=== PATIENT | male | born 1960 | race Two or more races ===

== ENCOUNTER 2022-05-28 18:21 | Inpatient (IN) ==
--- NOTE | 2022-05-28 18:28 | ED Triage Note ---
Date of Service May 28, 2022 History of Present Illness This patient was briefly evaluated while in triage. An abbreviated physical exam was performed. This patient is a 61-year-old Male who presents to the ED for evaluation of chest pain. 2/10 now. When moving the pain goes to across chest and to left side of chest and is 6/10. Last night chest pain and back pain. While walking home from PT the chest pain occurred. He also has a back issue and has been seeing PT. No personal heart history. Physical Exam GENERAL: 61 year old male. In no acute distress. SKIN: No lesions or rashes. HEART: Regular rate and rhythm. LUNGS: Clear to auscultation. NEURO: Alert and oriented. No deficits. MUSCULOSKELETAL: No deformities to inspection of the extremities. PSYCH: Patient is pleasant and answers all questions appropriately. Initial orders for labs and / or imaging were placed and patient was placed in the waiting area until a bed is available. Please see further documentation for the full ED course.
[2022-05-28 19:07] LABS: Basophils # (auto) 0.02 K/uL (0-0.2); Basophils % (auto) 0.2 %; Eosinophils # (auto) 0.02 K/uL (0-0.50); Eosinophils % (auto) 0.2 %; Hematocrit (blood only) 44.1 % (42.0-52.0); Hemoglobin 14.7 g/dl (14.0-18.0); Immature Granulocytes # (auto) 0.02 K/uL (0.01-0.20); Immature Granulocytes % (auto) 0.2 %; Lymphocytes # (auto) 1.37 K/uL (1.2-3.4); Mean Corpuscular Hemoglobin 30.4 pg (25.0-34.0); Mean Corpuscular Hgb Conc 33.3 g/dL (32.0-36.0); Mean Corpuscular Volume 91.1 fL (80.0-100.0); Mean Platelet Volume 9.6 fL (9.4-12.4); Monocytes # (auto) 0.76 K/uL (0.11-0.59); Monocytes % (auto) 7.7 %; Neutrophils # (auto) 7.62 K/uL (1.40-6.50); Neutrophils % (auto) 77.7 %; Platelet Count 189 K/uL (130-400); RDW Coefficient of Variation 12.5 % (11.5-14.5); Red Blood Count 4.84 M/uL (4.70-6.10); White Blood Count 9.81 K/ul (4.8-10.8)
[2022-05-28 19:25] LABS: Albumin Globulin Ratio 1.5 (0.9-2); Albumin Level 4.5 gm/dl (3.4-5.0); BUN Creatinine Ratio 13.7 (10-20); Bilirubin,Total 0.5 mg/dl (0.2-1.0); Calcium 9.6 mg/dl (8.5-10.1); Creatinine Clr Calc Pharmacy 55.4 ml/min; Est GFR (Non-African American) 66.4 ml/min; Potassium 4.1 mmol/L (3.5-5.1); Total Protein 7.5 gm/dl (6.0-8.3)
[2022-05-28 19:34] LABS: Troponin I High Sensitivity 6848.3 pg/ml (0-20)
[2022-05-28 19:35] LABS: Partial Thromboplastin Time 27.9 Seconds (21.0-31.0); Prothrombin Time 10.8 Seconds (9.0-12.0)
[2022-05-28] MEDS ORDERED: ASPIRIN 81 MG CHEW PO STA (19:36)
[2022-05-28] MEDS ORDERED: NITROGLYCERIN SL 0.4 MG/TAB TAB SL STA (19:36)
[2022-05-28] MEDS ORDERED: SODIUM CHLORIDE 0.9% 1000ML 1,000 ML IV ONE (19:42)
[2022-05-28] MEDS ORDERED: OPTIRAY 320 500ml IV ONE (19:48)
[2022-05-28 19:50] LABS: Lyme Ab IgG w/WB Rflx Negative (Negative); Lyme Ab IgM w/WB Rflx Negative (Negative)
--- NOTE | 2022-05-28 20:09 | CT Scan Report ---
CHEST CTA for PULMONARY ARTERIES CT DOSE: 302.70 mGy.cm HISTORY: Atypical chest pain. Shortness of breath. TECHNIQUE: Multiaxial CT images of the chest were performed following the intravenous administration of contrast to evaluate the pulmonary arteries. Maximal intensity projection images were also obtaine d. A dose lowering technique was utilized adhering to the principles of ALARA. COMPARISON STUDY: None. FINDINGS: Normal caliber thoracic aorta with no evidence for a dissection. Mild coronary artery calci fications are noted. The heart is normal in size. No pleural or pericardial effusions. Nondiagnostic evaluation of the left lower lobe subsegmental pulmonary arteries due to the respiratory motion artif act. Otherwise, no filling defects within the remaining pulmonary arteries to suggest a pulmonary emb olus. Normal thyroid gland. Normal caliber esophagus. Limited views of the upper abdomen demonstrate a normal liver and spleen. No mediastinal or hilar lymphadenopathy. No acute fractures identified. No pneumothorax. The central airways are patent. No focal lung consolidations to suggest a pneumonia. N o evidence for pulmonary edema. IMPRESSION: No evidence for a pulmonary embolus. ACT 112: Negative or not required by law. Electronically signed by: Bradford Silva M.D. 05/28/2022 8:07 PM
[2022-05-28] MEDS ORDERED: Heparin IV Adult Wt-Based Standard WITH Bolus Protocol IV STA (20:11)
[2022-05-28] MEDS ORDERED: STAT IV Infusion **Titration per Protocol STA (20:11)
[2022-05-28] MEDS ORDERED: NITROGLYCERIN/D5W 100MCG/ML 250 ML IV SCH (20:15)
[2022-05-28] MEDS ORDERED: METOPROLOL TARTRATE 25 MG TAB PO STA (20:25)
[2022-05-28] MEDS ORDERED: HEPARIN SOD (PORCINE) 1000 UNIT/ML IV ONE ×2 (20:26→21:00)
[2022-05-28] MEDS ORDERED: Heparin IV Adult Wt-Based Standard WITH Bolus Protocol IV SCH (20:30)
[2022-05-28] MEDS ORDERED: HEPARIN SODIUM/DEXTROSE 25,000 UNITS/500 ML BAG IV SCH ×2 (20:30→23:00)
--- NOTE | 2022-05-28 20:31 | XRay Report ---
XR chest 1V portable HISTORY: Atypical Chest pain COMPARISON: Chest CTA 05/28/2022. FINDINGS: The lungs are clear. Cardiac silhouette is normal in size. No pleural effusions. No pneumot horax. IMPRESSION: No acute process. ACT 112: Negative or not required by law. Electronically signed by: Bradford Silva M.D. 05/28/2022 8:29 PM
[2022-05-28 20:50] LABS: Magnesium 2.1 mg/dl (1.7-2.4)
[2022-05-28 21:09] LABS: Estimated Average Glucose 117 mg/dl; Hemoglobin A1C 5.7 % (4.5-5.6)
[2022-05-28] MEDS ORDERED: LABETALOL HCL IV 5 MG/ML 20ML IV STA (21:25)
--- NOTE | 2022-05-28 21:27 | History & Physical Report ---
Date of Service May 28, 2022 Assessment & Plan (1) Non-ST elevation AR (NSTEMI): Plan: Hypertensive emergency secondary to above prostatic adenoma as per records, history chronic prostatitis as per records, elevated outpatient PSA, outpatient urology referral contemplated by PCP Hyperglycemia rule out DM ICU monitoring given nitro drip IV labetalol 1 dose now Titrate nitro drip for comfort Aspirin, maintainence Lopressor, IV heparin TTE, Cardiology consult Re: NSTEMI (ED provider already in touch with critical care nurse specialist, Dr. Garduno who recommends diagnostic cardiac catheterization in a.m. Urgent procedure recommended if patient with uncontrolled pain as per public housing interviewer's conversation with ED provider.) Check hemoglobin A1c DVT prophylaxis. IV heparin Full code Patient requests for to be updated of progress. Miss Yaneth Vo, contact #[phone]. Secondary contact would be Mr. Cristi Estevez (work colleague/friend), contact #[phone]. Total critical care time was 50 minutes. Text document was generated using [email or web address] voice recognition software. It may contain grammatical or spelling errors. Kindly contact undersigned for clarification of any documentation item in question. History of Present Illness Chief Complaint: Back pain going to the chest Primary Care Provider: SYDNEE Castellanos History obtained from patient, family, and records. History obtained with the help of language line translation service. Medical history significant for chronic back pain, prostatic adenoma as per records. 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 For the last 4 days, patient noted achy radiating to the chest back pain associated with some shortness of breath. Symptoms somewhat different from chronic back pain attributed to old volleyball sports injury. No cough symptoms. Achy neck pain with transient headache symptoms. Some stress with some war related deaths in the family back home in [facility]. Patient brought to ER by work colleague for evaluation. SBP 190s at the ER. Aspirin, Nitropaste, IV heparin initiated at the ER for ACS. 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 [facility] Allergies Allergy/AdvReac Type Severity Reaction Status Date / Time No Known Allergies Allergy Verified 05/28/22 20:26 Home Medications Medication Instructions Recorded Confirmed Type No Known Home Medications 05/28/22 05/28/22 History Past Med/Surg History Medical History (Updated 05/29/22 @ 03:04 by SYDNEE Sandoval) Hepatitis A No pertinent family history Surgical History (Updated 05/29/22 @ 02:38 by Hiren Alexander) No pertinent past surgical history Social History Smoking Status: Never smoker Hx Alcohol Use: Yes Alcohol type: wine Hx Substance Use: No Preferred Language: Mauritanian 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 Ability: Impaired 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 Tools: IPad, Letter Board and Physical Gestures Breeding Technician Required: Yes Beliefs That Will Affect Care: None Current Living Situation: Spouse and Family Current Living Situation Comment: Patient lives at home with and daughter Other Information That Helps Us Care for You: No Feels Safe at Home: Yes Safety Concerns: Feels Safe At This Time Assistive Devices: Glasses Review of Systems Review of Systems: As per HPI, all other systems reviewed and negative Physical Exam Physical Exam: GENERAL: Comfortable, pleasant, slightly anxious, no respiratory distress SKIN: Normal color, warm HEENT: Partial alopecia, [place] palpebral conjunctivae, no ptosis, dry buccal mucosa NECK : Supple, no tenderness CHEST : CTA, no tenderness HEART : RRR, no obvious murmurs ABDOMEN: no distention, nontender EXTREMITIES : No LE swelling/tenderness, no other conspicuous deformities noted NEUROLOGIC : Coherent, no facial asymmetry, no other gross focality Results & Data Results & Data ([facility]) Vital Signs (Past 12 Hours) Vital Signs Temp Pulse Resp BP Pulse Ox O2 Del Method 05/28/22 21:00 72 14 185/136 H 96 05/28/22 20:45 65 24 96 05/28/22 20:30 57 L 17 181/96 H 97 05/28/22 20:15 67 14 94 05/28/22 20:09 162/95 H 05/28/22 20:09 70 23 95 05/28/22 20:05 61 22 97 05/28/22 18:26 37.3 C 70 20 198/92 H 97 Room Air Laboratory Results Laboratory Results WBC 9.81 K/ul (4.8-10.8) 05/28/22 18:51 RBC 4.84 M/uL (4.70-6.10) 05/28/22 18:51 Hgb 14.7 g/dl (14.0-18.0) 05/28/22 18:51 Hct 44.1 % (42.0-52.0) 05/28/22 18:51 MCV 91.1 fL (80.0-100.0) 05/28/22 18:51 MCH 30.4 pg (25.0-34.0) 05/28/22 18:51 MCHC 33.3 g/dL (32.0-36.0) 05/28/22 18:51 RDW Std Deviation 41.0 fL (36.4-46.3) 05/28/22 18:51 RDW Coeff of Antonio 12.5 % (11.5-14.5) 05/28/22 18:51 Plt Count 189 K/uL (130-400) 05/28/22 18:51 MPV 9.6 fL (9.4-12.4) 05/28/22 18:51 Immature Gran % (Auto) 0.2 % 05/28/22 18:51 Neut % (Auto) 77.7 % 05/28/22 18:51 Lymph % (Auto) 14.0 % 05/28/22 18:51 [place] % (Auto) 7.7 % 05/28/22 18:51 Eos % (Auto) 0.2 % 05/28/22 18:51 Baso % (Auto) 0.2 % 05/28/22 18:51 Neut # (Auto) 7.62 K/uL (1.40-6.50) H 05/28/22 18:51 Lymph # (Auto) 1.37 K/uL (1.2-3.4) 05/28/22 18:51 [place] # (Auto) 0.76 K/uL (0.11-0.59) H 05/28/22 18:51 Eos # (Auto) 0.02 K/uL (0-0.50) 05/28/22 18:51 Baso # (Auto) 0.02 K/uL (0-0.2) 05/28/22 18:51 Immature Gran # (Auto) 0.02 K/uL (0.01-0.20) 05/28/22 18:51 PT 10.8 Seconds (9.0-12.0) 05/28/22 18:51 INR 1.0 (0.9-1.1) 05/28/22 18:51 APTT 27.9 Seconds (21.0-31.0) 05/28/22 18:51 PTT Ratio 1.0 05/28/22 18:51 Sodium 140 mmol/L (136-145) 05/28/22 18:51 Potassium 4.1 mmol/L (3.5-5.1) 05/28/22 18:51 Chloride 104 mmol/L (98-107) 05/28/22 18:51 Carbon Dioxide 33 mmol/L (21-32) H 05/28/22 18:51 Anion Gap 3 (3-11) 05/28/22 18:51 BUN 16 mg/dl (6-23) 05/28/22 18:51 Creatinine 1.17 mg/dl (0.6-1.4) 05/28/22 18:51 Est Cr Clr Drug Dosing 55.4 ml/min 05/28/22 18:51 Est GFR ( Amer) 77.0 ml/min 05/28/22 18:51 Est GFR (Non-Af Amer) 66.4 ml/min 05/28/22 18:51 BUN/Creatinine Ratio 13.7 (10-20) 05/28/22 18:51 Glucose 136 mg/dl (70-99(Fasting)) H 05/28/22 18:51 Estimat Average Glucose 117 mg/dl 05/28/22 18:51 Hemoglobin A1c 5.7 % (4.5-5.6) H 05/28/22 18:51 Calcium 9.6 mg/dl (8.5-10.1) 05/28/22 18:51 Magnesium 2.1 mg/dl (1.7-2.4) 05/28/22 18:51 Total Bilirubin 0.5 mg/dl (0.2-1.0) 05/28/22 18:51 AST 83 U/L (13-39) H 05/28/22 18:51 ALT 33 U/L (7-52) 05/28/22 18:51 Alkaline Phosphatase 44 U/L (34-104) 05/28/22 18:51 Troponin I High Sens 6848.3 pg/ml (0-20) H* 05/28/22 18:51 Total Protein 7.5 gm/dl (6.0-8.3) 05/28/22 18:51 Albumin 4.5 gm/dl (3.4-5.0) 05/28/22 18:51 Globulin 3.0 gm/dl (2.5-4.0) 05/28/22 18:51 Albumin/Globulin Ratio 1.5 (0.9-2) 05/28/22 18:51 Lipase 16 U/L (11-82) 05/28/22 18:51 TSH 1.243 uIu/ml (0.300-4.500) 05/28/22 18:51 Lyme Disease IgG Ab Negative (Negative) 05/28/22 18:51 Lyme Disease IgM Ab Negative (Negative) 05/28/22 18:51 Impressions Chest X-Ray 05/28/22 18:34 XR chest 1V portable HISTORY: Atypical Chest pain COMPARISON: Chest CTA 05/28/2022. FINDINGS: The lungs are clear. Cardiac silhouette is normal in size. No pleural effusions. No pneumothorax. IMPRESSION: No acute process. ACT 112: Negative or not required by law. Electronically signed by: Bradford Silva M.D. 05/28/2022 8:29 PM Chest CTA 05/28/22 19:34 CHEST CTA for PULMONARY ARTERIES CT DOSE: 302.70 mGy.cm HISTORY: Atypical chest pain. Shortness of breath. TECHNIQUE: Multiaxial CT images of the chest were performed following the in travenous administration of contrast to evaluate the pulmonary arteries. Maximal intensity projection images were also obtained. A dose lowering technique was utilized adhering to the principles of ALARA. COMPARISON STUDY: None. FINDINGS: Normal caliber thoracic aorta with no evidence for a dissection. Mild coronary artery calcifications are noted. The heart is normal in size. No pleural or pericardial effusions. Nondiagnostic evaluation of the left lower lobe subsegmental pulmonary arteries due to the respiratory motion artifact. Otherwise, no filling defects within the remaining pulmonary arteries to suggest a pulmonary embolus. Normal thyroid gland. Normal caliber esophagus. Limited views of the upper abdomen demonstrate a normal liver and spleen. No mediastinal or hilar lymphadenopathy. No acute fractures identified. No pneumothorax. The central airways are patent. No focal lung consolidations to suggest a pneumonia. No evidence for pulmonary edema. IMPRESSION: No evidence for a pulmonary embolus. ACT 112: Negative or not required by law. Electronically signed by: Bradford Silva M.D. 05/28/2022 8:[address] head: No acute intracranial hemorrhage, midline shift, or mass effect. Diagnostic Findings EKG as per my interpretation : Rate 55, sinus bradycardia, normal axis, T wave inversions inferior leads
[2022-05-28] MEDS ORDERED: LACTATED RINGER'S 1,000 ML IV ONE (21:47)
--- NOTE | 2022-05-28 22:29 | CT Scan Report ---
Exam(s): CT HEAD Without Contrast EXAM: CT Head Without Intravenous Contrast CLINICAL HISTORY: Reason for exam: sanchez, htn. TECHNIQUE: Axial computed tomography images of the head/brain without intravenous contrast. Automated exposure control was utilized for the study. A dose lowering technique was utilized adhering to the principles of ALARA. COMPARISON: No relevant prior studies available. FINDINGS: No acute intracranial hemorrhage. No midline shift or mass effect. The territorial zendejas-white matter differentiation is maintained throughout. The ventricles and sulci are commensurate with age. The visualized orbits appear grossly unremarkable. The calvarium is intact. The visualized paranasal sinuses and mastoid air cells are grossly clear. IMPRESSION: No acute intracranial hemorrhage, midline shift, or mass effect. Electronically signed by: Thaddeus Argueta MD 05/28/22 22:28 PM
[2022-05-28] MEDS ORDERED: Heparin IV Adult Wt-Based Standard *NO* Bolus Protocol IV SCH (22:38)
[2022-05-28] MEDS ORDERED: PROMETHAZINE HCL 6.25 MG in SODIUM CHLORIDE 0.9% 50 ML IV PRN (23:20)
[2022-05-28] MEDS ORDERED: MoRPHine SULFATE 2 MG/ML CARP IV PRN (23:20)
[2022-05-28] MEDS ORDERED: traMADol HCL 50 MG TABLET PO PRN (23:20)
--- NOTE | 2022-05-29 02:35 | Emergency Department Note ---
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 History of Present Illness Provider Complaint: chest pain Onset (ago): day(s) 1 Duration: improved Onset: during exertion Pain Location: substernal and left chest Pain Radiation: none Severity: moderate Maximum Pain Intensity: 6 Current Pain Intensity: 2 Quality: + aching and + dull Relieved By: + rest Exacerbated By: + exertion Context: no recent illness, no recent surgery, no recent immobilization, no recent travel, no trauma/injury, no new medications or no history of DVT/PE Associated symptoms: + dyspnea; no palpitations, no fever or no cough Treatments prior to arrival: none Home Medications Medication Instructions Recorded Confirmed Type No Known Home Medications 05/28/22 05/28/22 History Allergies Allergy/AdvReac Type Severity Reaction Status Date / Time No Known Allergies Allergy Verified 05/28/22 20:26 Past Med/Surg History Medical History (Updated 05/29/22 @ 02:45 by Hiren Alexander) Hepatitis A No pertinent family history Surgical History (Updated 05/29/22 @ 02:38 by Hiren Alexander) No pertinent past surgical history Social History Smoking Status: Never smoker Hx Alcohol Use: Yes Alcohol type: wine Hx Substance Use: No Preferred Language: Bhutanese 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 Ability: 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 Beliefs That Will Affect Care: None Current Living Situation: Spouse and Family Current Living Situation Comment: Patient lives at home with and daughter Other Information That Helps Us Care for You: No Feels Safe at Home: Yes Safety Concerns: Feels Safe At This Time Assistive Devices: Glasses Physical Exam Vital Signs Vital Signs - 24 hr 05/28/22 18:26 05/28/22 20:05 05/28/22 20:09 Temperature 37.3 C Temperature Source Temporal Artery Scan Pulse Rate 70 61 70 Pulse Rate from SpO2 Sensor 62 65 Pulse Rhythm Regular Respiratory Rate 20 22 23 Respiratory Effort / Characteristics Non-Labored Spontaneous Respiratory Depth Normal Blood Pressure 198/92 H Blood Pressure Mean 127 Pulse Oximetry 97 97 95 Oxygen Delivery Method Room Air Sepsis Recent Fever Within 48 Hours No Sepsis New/Unexplained Change in Mental Status No Sepsis Action Taken by Nursing No Action Required 05/28/22 20:09 05/28/22 20:15 05/28/22 20:30 Temperature Temperature Source Pulse Rate 67 57 L Pulse Rate from SpO2 Sensor 65 57 L Pulse Rhythm Respiratory Rate 14 17 Respiratory Effort / Characteristics Respiratory Depth Blood Pressure 162/95 H 181/96 H Blood Pressure Mean 117 124 Pulse Oximetry 94 97 Oxygen Delivery Method Sepsis Recent Fever Within 48 Hours Sepsis New/Unexplained Change in Mental Status Sepsis Action Taken by Nursing 05/28/22 20:45 05/28/22 21:00 05/28/22 21:15 Temperature Temperature Source Pulse Rate 65 72 60 Pulse Rate from SpO2 Sensor 63 72 61 Pulse Rhythm Respiratory Rate 24 14 25 H Respiratory Effort / Characteristics Respiratory Depth Blood Pressure 185/136 H 176/108 H Blood Pressure Mean 152 130 Pulse Oximetry 96 96 97 Oxygen Delivery Method Sepsis Recent Fever Within 48 Hours Sepsis New/Unexplained Change in Mental Status Sepsis Action Taken by Nursing 05/28/22 21:25 05/28/22 21:30 05/28/22 21:31 Temperature Temperature Source Pulse Rate 65 76 Pulse Rate from SpO2 Sensor 65 Pulse Rhythm Respiratory Rate 22 18 Respiratory Effort / Characteristics Respiratory Depth Blood Pressure 156/80 H 192/108 H Blood Pressure Mean 105 136 Pulse Oximetry 99 Oxygen Delivery Method Sepsis Recent Fever Within 48 Hours Sepsis New/Unexplained Change in Mental Status Sepsis Action Taken by Nursing 05/28/22 21:31 05/28/22 21:35 05/28/22 21:35 Temperature Temperature Source Pulse Rate 84 62 Pulse Rate from SpO2 Sensor 63 Pulse Rhythm Respiratory Rate 20 15 Respiratory Effort / Characteristics Respiratory Depth Blood Pressure 151/94 H Blood Pressure Mean 113 Pulse Oximetry 97 Oxygen Delivery Method Sepsis Recent Fever Within 48 Hours Sepsis New/Unexplained Change in Mental Status Sepsis Action Taken by Nursing 05/28/22 20:05 Temperature Temperature Source Pulse Rate 63 Pulse Rate from SpO2 Sensor Pulse Rhythm Respiratory Rate Respiratory Effort / Characteristics Respiratory Depth Blood Pressure Blood Pressure Mean Pulse Oximetry Oxygen Delivery Method Sepsis Recent Fever Within 48 Hours Sepsis New/Unexplained Change in Mental Status Sepsis Action Taken by Nursing Physical Exam GENERAL: oriented to person, place, and time. appears well-developed and well- nourished. HENT: Exam performed. - Head: Normocephalic and atraumatic. EYES: Conjunctivae and EOM are normal. Right eye exhibits no discharge. Left eye exhibits no discharge. No scleral icterus. NECK: Normal range of motion. Neck supple. No JVD present. CV: Normal rate, regular rhythm, normal heart sounds and intact distal pulses. There is no peripheral edema. Palpable radial pulses bue. PULM/CHEST: Effort normal and breath sounds normal. No respiratory distress. No stridor. no wheezes. no rales. ABD: The abdomen is soft. There is no tenderness. NEURO: Motor and sensation grossly intact. SKIN: Skin is warm and dry. He is not diaphoretic. PSYCH: normal mood and affect. Behavior is normal. Judgment and thought content normal. Course Course 1921: The patient was evaluated in room C12. A complete history and physical exam was performed Cardiac monitoring: An order was placed for continuous cardiac monitoring. The monitor shows a rate of 60 with sinus rhythm interpreted by me Patient was seen during a time of extreme volume and extreme acuity in the emergency department. Nursing triage protocols were initiated and labs were drawn by protocol in the triage area. 1939: Vital signs stable. EKG to show some biphasic T waves in the inferior leads as well as some mild ST depression in leads V2 and V3. Troponin is elevated at 6848. Patient currently reporting his chest pain is 2 out of 10. Discussed the case with interventional cardiology on-call Dr. Garduno who reviewed the EKGs himself and states if the patient becomes increasingly symptomatic having chest pain to call out a heart alert otherwise at this time to start the patient on heparin for ACS and he will evaluate the patient in the morning for cardiac catheterization. 2028: Vital signs stable. Status post aspirin and sublingual nitroglycerin the patient states that his chest pain is barely there reporting extremely mild. He states is not causing him any distress and he reports that at a maximum of 1 out of 10 at this time. We will start the patient on heparin and nitro drip and pl [facility] will be notified. Administered Medications Nitroglycerin/Dextrose (Nitroglycerin/D5w 100 Mcg/Ml) 250 mls @ 12 mls/hr IV .[id number] [facility]; Protocol Stop: 06/27/22 20:14 Last Titration: 05/28/22 22:11 Dose: 20 mcg/min, 12 mls/hr Documented By: Titration: 05/28/22 21:25 Dose: 15 mcg/min, 9 mls/hr Documented By: Titration: 05/28/22 21:20 Dose: 10 mcg/min, 6 mls/hr Documented By: Admin: 05/28/22 20:57 Dose: 5 mcg/min, 3 mls/hr Documented By: SAM Co-signed By: GINNY Lactated Ringer's (Lr) 1,000 mls @ 50 mls/hr IV .Q20H ONE Stop: 05/29/22 17:46 Last Admin: 05/28/22 22:08 Dose: 50 mls/hr Documented By: SAM Heparin Sodium/Dextrose (Heparin Sodium/Dextrose) 25,000 units in 500 mls @ 22 mls/hr IV .[id number] [facility]; Protocol Stop: 06/27/22 22:59 Last Admin: 05/28/22 23:38 Dose: 1,100 units/hr, 22 mls/hr Documented By: EDWIN Co-signed By: ALANA Discontinued Medications Aspirin (Aspirin 81 Mg Chew) 324 mg PO NOW STA Stop: 05/28/22 19:37 Last Admin: 05/28/22 20:02 Dose: 324 mg Documented By: NATY Heparin Sodium (Porcine) (Heparin Sod (Porcine) 1000 Unit/Ml) 5,000 units IV NOW ONE Stop: 05/28/22 21:01 Last Admin: 05/28/22 21:02 Dose: Not Given Documented By: SAM Heparin Sodium/Dextrose (Heparin Iv Adult Wt-Based Standard With Bolus Protocol) 1 each IV NOW STA; Protocol Stop: 05/28/22 20:12 Last Admin: 05/28/22 21:01 Dose: 1 each Documented By: SAM Heparin Sodium/Dextrose (Heparin Iv Adult Wt-Based Standard *No* Bolus Protocol) 1 each IV Q15M [facility]; Protocol Stop: 05/29/22 02:00 Last Admin: 05/29/22 02:10 Dose: 1 each Documented By: EDWIN Sodium Chloride (Nss 1000ml) 1,000 mls @ 999 mls/hr IV .Q1H1M ONE Stop: 05/28/22 20:42 Last Infusion: 05/29/22 01:29 Dose: 0 mls/hr Documented By: Admin: 05/28/22 20:02 Dose: 999 mls/hr Documented By: NATY Heparin Sodium/Dextrose (Heparin Sodium/Dextrose) 25,000 units in 500 mls @ 22 mls/hr IV .[id number] [facility]; Protocol Stop: 06/27/22 20:29 Last Titration: 05/29/22 01:30 Dose: 0 units/hr, 0 mls/hr Documented By: EDWIN Co-signed By: ALANA Titration: 05/28/22 21:04 Dose: 0 units/hr, 0 mls/hr Documented By: SAM Co-signed By: GINNY Admin: 05/28/22 20:57 Dose: 1,100 units/hr, 22 mls/hr Documented By: SAM Co-signed By: GINNY Ioversol (Optiray 320 500ml) 107 ml IV ONCE ONE Stop: 05/28/22 19:49 Last Admin: 05/28/22 19:52 Dose: 107 ml Documented By: KAVYA Labetalol HCl (Labetalol Hcl Iv 5 Mg/Ml 20ml) 10 mg IV NOW STA Stop: 05/28/22 21:26 Last Admin: 05/28/22 21:57 Dose: 10 mg Documented By: SAM Co-signed By: CESARIO Metoprolol Tartrate (Metoprolol Tartrate 25 Mg Tab) 25 mg PO NOW STA Stop: 05/28/22 20:26 Last Admin: 05/28/22 22:09 Dose: Not Given Documented By: SAM Nitroglycerin (Nitroglycerin Sl 0.4 Mg/Tab Tab) 0.4 mg SL NOW STA Stop: 05/28/22 19:37 Last Admin: 05/28/22 20:02 Dose: 0.4 mg Documented By: NATY Medical Decision Making Laboratory Data Attestation: I reviewed the patient's lab results. 05/28/22 18:51 05/28/22 18:51 Labs: Lab Results 05/28/22 05/28/22 05/28/22 Range/Units 18:51 18:51 18:51 WBC 9.81 (4.8-10.8) K/ul RBC 4.84 (4.70-6.10) M/uL Hgb 14.7 (14.0-18.0) g/dl Hct 44.1 (42.0-52.0) % MCV 91.1 (80.0-100.0) fL MCH 30.4 (25.0-34.0) pg MCHC 33.3 (32.0-36.0) g/dL RDW Std Deviation 41.0 (36.4-46.3) fL RDW Coeff of Antonio 12.5 (11.5-14.5) % Plt Count 189 (130-400) K/uL MPV 9.6 (9.4-12.4) fL Immature Gran % (Auto) 0.2 % Neut % (Auto) 77.7 % Lymph % (Auto) 14.0 % Maury % (Auto) 7.7 % Eos % (Auto) 0.2 % Baso % (Auto) 0.2 % Neut # (Auto) 7.62 H (1.40-6.50) K/uL Lymph # (Auto) 1.37 (1.2-3.4) K/uL Maury # (Auto) 0.76 H (0.11-0.59) K/uL Eos # (Auto) 0.02 (0-0.50) K/uL Baso # (Auto) 0.02 (0-0.2) K/uL Immature Gran # (Auto) 0.02 (0.01-0.20) K/uL PT 10.8 (9.0-12.0) Seconds INR 1.0 (0.9-1.1) APTT 27.9 (21.0-31.0) Seconds PTT Ratio 1.0 Sodium 140 (136-145) mmol/L Potassium 4.1 (3.5-5.1) mmol/L Chloride 104 (98-107) mmol/L Carbon Dioxide 33 H (21-32) mmol/L Anion Gap 3 (3-11) BUN 16 (6-23) mg/dl Creatinine 1.17 (0.6-1.4) mg/dl Est Cr Clr Drug Dosing 55.4 ml/min Est GFR ( Amer) 77.0 ml/min Est GFR (Non-Af Amer) 66.4 ml/min BUN/Creatinine Ratio 13.7 (10-20) Glucose 136 H (70-99(Fasting)) mg/dl Estimat Average Glucose mg/dl Hemoglobin A1c (4.5-5.6) % Calcium 9.6 (8.5-10.1) mg/dl Magnesium 2.1 (1.7-2.4) mg/dl Total Bilirubin 0.5 (0.2-1.0) mg/dl AST 83 H (13-39) U/L ALT 33 (7-52) U/L Alkaline Phosphatase 44 (34-104) U/L Troponin I High Sens 6848.3 H* (0-20) pg/ml Total Protein 7.5 (6.0-8.3) gm/dl Albumin 4.5 (3.4-5.0) gm/dl Globulin 3.0 (2.5-4.0) gm/dl Albumin/Globulin Ratio 1.5 (0.9-2) Lipase 16 (11-82) U/L TSH (0.300-4.500) uIu/ml Lyme Disease IgG Ab (Negative) Lyme Disease IgM Ab (Negative) SARS-CoV-2, RNA, NAAT (NEGATIVE) 05/28/22 05/28/22 05/28/22 Range/Units 18:51 18:51 18:51 WBC (4.8-10.8) K/ul RBC (4.70-6.10) M/uL Hgb (14.0-18.0) g/dl Hct (42.0-52.0) % MCV (80.0-100.0) fL MCH (25.0-34.0) pg MCHC (32.0-36.0) g/dL RDW Std Deviation (36.4-46.3) fL RDW Coeff of Antonio (11.5-14.5) % Plt Count (130-400) K/uL MPV (9.4-12.4) fL Immature Gran % (Auto) % Neut % (Auto) % Lymph % (Auto) % Maury % (Auto) % Eos % (Auto) % Baso % (Auto) % Neut # (Auto) (1.40-6.50) K/uL Lymph # (Auto) (1.2-3.4) K/uL Maury # (Auto) (0.11-0.59) K/uL Eos # (Auto) (0-0.50) K/uL Baso # (Auto) (0-0.2) K/uL Immature Gran # (Auto) (0.01-0.20) K/uL PT (9.0-12.0) Seconds INR (0.9-1.1) APTT (21.0-31.0) Seconds PTT Ratio Sodium (136-145) mmol/L Potassium (3.5-5.1) mmol/L Chloride (98-107) mmol/L Carbon Dioxide (21-32) mmol/L Anion Gap (3-11) BUN (6-23) mg/dl Creatinine (0.6-1.4) mg/dl Est Cr Clr Drug Dosing ml/min Est GFR ( Amer) ml/min Est GFR (Non-Af Amer) ml/min BUN/Creatinine Ratio (10-20) Glucose (70-99(Fasting)) mg/dl Estimat Average Glucose 117 mg/dl Hemoglobin A1c 5.7 H (4.5-5.6) % Calcium (8.5-10.1) mg/dl Magnesium (1.7-2.4) mg/dl Total Bilirubin (0.2-1.0) mg/dl AST (13-39) U/L ALT (7-52) U/L Alkaline Phosphatase (34-104) U/L Troponin I High Sens (0-20) pg/ml Total Protein (6.0-8.3) gm/dl Albumin (3.4-5.0) gm/dl Globulin (2.5-4.0) gm/dl Albumin/Globulin Ratio (0.9-2) Lipase (11-82) U/L TSH 1.243 (0.300-4.500) uIu/ml Lyme Disease IgG Ab Negative (Negative) Lyme Disease IgM Ab Negative (Negative) SARS-CoV-2, RNA, NAAT (NEGATIVE) 05/28/22 Range/Units 21:15 WBC (4.8-10.8) K/ul RBC (4.70-6.10) M/uL Hgb (14.0-18.0) g/dl Hct (42.0-52.0) % MCV (80.0-100.0) fL MCH (25.0-34.0) pg MCHC (32.0-36.0) g/dL RDW Std Deviation (36.4-46.3) fL RDW Coeff of Antonio (11.5-14.5) % Plt Count (130-400) K/uL MPV (9.4-12.4) fL Immature Gran % (Auto) % Neut % (Auto) % Lymph % (Auto) % Maury % (Auto) % Eos % (Auto) % Baso % (Auto) % Neut # (Auto) (1.40-6.50) K/uL Lymph # (Auto) (1.2-3.4) K/uL Maury # (Auto) (0.11-0.59) K/uL Eos # (Auto) (0-0.50) K/uL Baso # (Auto) (0-0.2) K/uL Immature Gran # (Auto) (0.01-0.20) K/uL PT (9.0-12.0) Seconds INR (0.9-1.1) APTT (21.0-31.0) Seconds PTT Ratio Sodium (136-145) mmol/L Potassium (3.5-5.1) mmol/L Chloride (98-107) mmol/L Carbon Dioxide (21-32) mmol/L Anion Gap (3-11) BUN (6-23) mg/dl Creatinine (0.6-1.4) mg/dl Est Cr Clr Drug Dosing ml/min Est GFR ( Amer) ml/min Est GFR (Non-Af Amer) ml/min BUN/Creatinine Ratio (10-20) Glucose (70-99(Fasting)) mg/dl Estimat Average Glucose mg/dl Hemoglobin A1c (4.5-5.6) % Calcium (8.5-10.1) mg/dl Magnesium (1.7-2.4) mg/dl Total Bilirubin (0.2-1.0) mg/dl AST (13-39) U/L ALT (7-52) U/L Alkaline Phosphatase (34-104) U/L Troponin I High Sens (0-20) pg/ml Total Protein (6.0-8.3) gm/dl Albumin (3.4-5.0) gm/dl Globulin (2.5-4.0) gm/dl Albumin/Globulin Ratio (0.9-2) Lipase (11-82) U/L TSH (0.300-4.500) uIu/ml Lyme Disease IgG Ab (Negative) Lyme Disease IgM Ab (Negative) SARS-CoV-2, RNA, NAAT NEGATIVE (NEGATIVE) Imaging Data Chest x-ray: Attestation: I personally reviewed and interpreted this imaging study as follows: My impression: Chest x-ray negative. Airway clear. No pneumothorax. No consolidation. No cardiomegaly or cephalization.. No free air under the diaphragm. No fractures of the skeletal structures. Radiologist's impression: XR chest 1V portable HISTORY: Atypical Chest pain COMPARISON: Chest CTA 05/28/2022. FINDINGS: The lungs are clear. Cardiac silhouette is normal in size. No pleural effusions. No pneumothorax. IMPRESSION: No acute process. ACT 112: Negative or not required by law. CT scan - chest: Radiologist's impression: CHEST CTA for PULMONARY ARTERIES CT DOSE: 302.70 mGy.cm HISTORY: Atypical chest pain. Shortness of breath. TECHNIQUE: Multiaxial CT images of the chest were performed following the intravenous administration of contrast to evaluate the pulmonary arteries. Maximal intensity projection images were also obtained. A dose lowering technique was utilized adhering to the principles of ALARA. COMPARISON STUDY: None. FINDINGS: Normal caliber thoracic aorta with no evidence for a dissection. Mild coronary artery calcifications are noted. The heart is normal in size. No pleural or pericardial effusions. Nondiagnostic evaluation of the left lower lobe subsegmental pulmonary arteries due to the respiratory motion artifact. Otherwise, no filling defects within the remaining pulmonary arteries to suggest a pulmonary embolus. Normal thyroid gland. Normal caliber esophagus. Limited views of the upper abdomen demonstrate a normal liver and spleen. No mediastinal or hilar lymphadenopathy. No acute fractures identified. No pneumothorax. The central airways are patent. No focal lung consolidations to suggest a pneumonia. No evidence for pulmonary edema. IMPRESSION: No evidence for a pulmonary embolus. ACT 112: Negative or not required by law. Electronically signed by: Bradford Silva M.D. 05/28/2022 8:07 PM Dictated:05/28/221958 Transcribed: 05/28/221958 ECG Data Attestation: I personally reviewed and interpreted this ECG as follows: Additional Comments: EKG 1 at 1842: Sinus rhythm with rate of 58. KS QRS and QTc intervals within normal limits. Biphasic T waves in leads II, III and aVF. Mild ST depression in leads V2 and V3. EKG #2 at 1930: Sinus rhythm with a rate of 57. KS QRS and QTc intervals within normal limits.Biphasic T waves in leads II, III and aVF. Mild ST depression in leads V2 and V3. No significant change from the previous EKGs. MDM Narrative 192: The patient was evaluated in room C12. A complete history and physical exam was performed Cardiac monitoring: An order was placed for continuous cardiac monitoring. The monitor shows a rate of 60 with sinus rhythm interpreted by me Patient was seen during a time of extreme volume and extreme acuity in the emergency department. Nursing triage protocols were initiated and labs were drawn by protocol in the triage area. 1939: Vital signs stable. EKG to show some biphasic T waves in the inferior leads as well as some mild ST depression in leads V2 and V3. Troponin is elevated at 6848. Patient currently reporting his chest pain is 2 out of 10. Discussed the case with interventional cardiology on-call Dr. Garduno who reviewed the EKGs himself and states if the patient becomes increasingly symptomatic having chest pain to call out a heart alert otherwise at this time to start the patient on heparin for ACS and he will evaluate the patient in the morning for cardiac catheterization. 2028: Vital signs stable. Status post aspirin and sublingual nitroglycerin the patient states that his chest pain is barely there reporting extremely mild. He states is not causing him any distress and he reports that at a maximum of 1 out of 10 at this time. We will start the patient on heparin and nitro drip and plan [facility] Boswell will be notified. Impression & Plan Non-ST elevation MT (NSTEMI) Critical Care Time Critical Care Time: Yes Total Critical Care Time: 62 I have personally spent greater than 62 minutes of critical care time in the direct management of this patient. This includes bedside care, interpretation of diagnostic studies, and testing, discussion with consultants, patient, and family members, and other required patient management activities. This 62 minutes is in excess of all separately billable procedures. Discharge Plan Visit Data Chief Complaint: Chest Pain Stated Complaint: CHEST PAIN,REF BY DOC,CARDIAC ASSESSMENT,SOB ED Provider: Hiren Alexander Discharge Problem: Non-ST elevation MT (NSTEMI) Patient Disposition: Admitted As Inpatient Discharge Instructions Interventions: ED Discharge Assessment Last Done: 05/28/22 22:21
--- NOTE | 2022-05-29 02:46 | Critical Care Consultation ---
Date of Consultation May 29, 2022 Assessment & Plan (1) Non-ST elevation ID (NSTEMI): Impression: 61-year-old male presents to the ICU with NSTEMI and currently undergoing medical management with heparin drip and nitro drip, with plan to undergo heart cath this a.m. Neuro - [facility] ICU: Negative CT head negative for acute intracranial findings Cardiac - NSTEMIpatient with chest pain with associated dyspnea and nausea. Initial troponin [address] depressions in V3 and V4 leads -Interventional cardiology consulted and plan to undergo heart catheterization this a.m. -Continue with heparin drip -Titrate nitro drip for chest pain -Trend troponin -Follow-up echo -Continuous monitoring on telemetry in ICU Respiratory - No history of pulmonary disease, no respiratory distress. Currently maintaining oxygen saturation on room air. Continuous monitoring pulse ox GI - N.p.o. RENAL/LYTES - Creatinine within normal limits, monitor routine BMP and replete electrolytes as indicated - Strict I's and O's ENDO - No history of diabetes or thyroid disease. Currently euglycemic. ICU hyperglycemic protocol HEME - H&H stable, monitor routine CBC ID - No indication for past process at this time LINES/IV ACCESS - Peripheral IVs DVT PROPHYLAXIS - SCDs, heparin drip Thank you for allowing us to participate in the care of this patient. Please refer to my attending physician's documentation for any further recommendations. (2) Dyspnea: Supervising Physician Co-Signing Physician Notes Patient seen and examined. EMR reviewed. Discussed with bedside critical care nurse and on multidisciplinary rounds. Agree with assessment plan as noted. Patient remains on his nitro infusion. He is chest pain-free but complaining of a slight headache. Has been hemodynamically stable. He remains anticoagulated. He is pending evaluation in the [facility] for presumed coronary disease. Continue aspirin and beta-jonel and statin. Depending on findings of the [facility], additional interventions may be required. Echocardiogram pending post angio. Will continue to follow. Additional 40 minutes evaluating care and managing vasoactive drips. History of Present Illness Attending Physician: Pardeep Rae MD History of Present Illness Patient is a 61-year-old male without significant past medical history, does not take home medications, who presented to the emergency department with complaints of chest pain and dyspnea. Patient is currently undergoing physical therapy for lower back pain and after his last session on , began to have severe chest pain with associated shortness of breath. Initially the patient's pain went away but reoccurred last night again with dyspnea and he also reported a headache. Patient initially had chest pain 6 out of 10. EKG revealed ST depressions in V2 and V3 and patient had elevated troponin of 6848. [facility] was contacted by the emergency department. As of now patient is to be admitted to ICU with nitro drip and heparin drip, with plan for catheterization in the morning. On arrival to the ICU the patient is alert and oriented. Of note, he is a [place] refugee who speaks some Latvian but a medical records analyst was used for the subjective portion. As of now he reports chest pain 1 out of 10, and mild shortness of breath. He reports becoming nauseous earlier with chest pain. He denies recent illness or fevers, congestion, cough, abdominal pain, vomiting or diarrhea, swelling in hands or feet. Patient to remain in ICU for further management at this time. Allergies Allergy/AdvReac Type Severity Reaction Status Date / Time No Known Allergies Allergy Verified 05/28/22 20:26 Home Medications Medication Instructions Recorded Confirmed Type No Known Home Medications 05/28/22 05/28/22 History Patient History Medical History (Updated 05/29/22 @ 03:04 by SYDNEE Sandoval) Hepatitis A No pertinent family history Surgical History (Updated 05/29/22 @ 02:38 by Hiren Alexander) No pertinent past surgical history Social History Smoking Status: Never smoker Hx Alcohol Use: Yes Alcohol type: wine Hx Substance Use: No Preferred Language: Mauritian 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 Ability: Impaired 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 Tools: IPad, Letter Board and Physical Gestures Tow Operator Required: Yes Beliefs That Will Affect Care: None Current Living Situation: Spouse and Family Current Living Situation Comment: Patient lives at home with and daughter Other Information That Helps Us Care for You: No Feels Safe at Home: Yes Safety Concerns: Feels Safe At This Time Assistive Devices: Glasses Review of Systems Review of Systems: All systems reviewed & are unremarkable except as noted in HPI & below Physical Exam Constitutional: cooperative; no acute distress Eyes: PERRL, conjunctivae normal, anicteric sclerae ENMT: external ear and nose normal, oropharynx normal Neck: trachea midline, no thyromegaly Respiratory: normal respiratory effort, lungs clear to auscultation Cardiovascular: RRR, no murmur, no edema Heart Sounds: normal S1 and normal S2; no murmur Vessels: no JVD Extremities: no edema Gastrointestinal (Abdomen): normal bowel sounds, soft, nontender, no hepatosplenomegaly Musculoskeletal: no cyanosis or clubbing, extremities motor strength 5/5 Skin: no rashes, warm and dry Neurologic: PERRL, EOMI, accommodation nl, no face palsy, no dysarthria Psychiatric: A+Ox3, euthymic affect Results & Data Results & [facility] ([facility]) Vital Signs (Past 12 Hours) Vital Signs Temp Pulse Resp BP Pulse Ox O2 Del Method 05/28/22 20:05 63 05/28/22 22:20 133/79 05/28/22 22:19 57 L 19 96 05/28/22 22:15 59 L 22 139/77 96 05/28/22 22:10 55 L 15 136/70 95 05/28/22 22:05 54 L 14 129/72 96 05/28/22 22:00 56 L 15 129/73 96 05/28/22 21:55 64 19 97 05/28/22 21:55 155/85 H 05/28/22 21:50 58 L 18 94 05/28/22 21:50 150/89 H 05/28/22 21:35 62 15 97 05/28/22 21:35 151/94 H 05/28/22 21:31 84 20 05/28/22 21:31 192/108 H 05/28/22 21:30 76 18 05/28/22 21:25 65 22 156/80 H 99 05/28/22 21:15 60 25 H 176/108 H 97 05/28/22 21:00 72 14 185/136 H 96 05/28/22 20:45 65 24 96 05/28/22 20:30 57 L 17 181/96 H 97 05/28/22 20:15 67 14 94 05/28/22 20:09 162/95 H 05/28/22 20:09 70 23 95 05/28/22 20:05 61 22 97 05/28/22 18:26 37.3 C 70 20 198/92 H 97 Room Air Coding Level of Care Code 69387 IN/OBS CONSULT LVL 4,60M Diagnoses Non-ST elevation ID (NSTEMI) I21.4 Dyspnea R06.00 Time Spent (min) 35
[2022-05-29] MEDS ORDERED: ACETAMINOPHEN 325 MG TAB PO PRN (03:03)
[2022-05-29 06:08] LABS: Albumin Globulin Ratio 1.4 (0.9-2); Albumin Level 3.6 gm/dl (3.4-5.0); BUN Creatinine Ratio 11.4 (10-20); Bilirubin,Total 0.8 mg/dl (0.2-1.0); Calcium 8.8 mg/dl (8.5-10.1); Chol HDL Ratio 4.7 (0-5); Creatinine Clr Calc Pharmacy 64.1 ml/min; Est GFR (African American) 87.7 ml/min; Est GFR (Non-African American) 75.7 ml/min; Globulin 2.5 gm/dl (2.5-4.0); Magnesium 1.7 mg/dl (1.7-2.4); Phosphorus 3.1 mg/dl (2.5-4.9); Potassium 3.9 mmol/L (3.5-5.1); Total Protein 6.1 gm/dl (6.0-8.3)
[2022-05-29 06:14] LABS: Troponin I High Sensitivity 13037.6 pg/ml (0-20)
[2022-05-29] MEDS ORDERED: POTASSIUM CHLORIDE / WTR 10 MEQ/100 ML PLCT IV ONE (06:21)
[2022-05-29 06:29] LABS: Basophils # (auto) 0.02 K/uL (0-0.2); Basophils % (auto) 0.3 %; Eosinophils # (auto) 0.01 K/uL (0-0.50); Eosinophils % (auto) 0.1 %; Hemoglobin 12.3 g/dl (14.0-18.0); Immature Granulocytes # (auto) 0.02 K/uL (0.01-0.20); Immature Granulocytes % (auto) 0.3 %; Lymphocytes # (auto) 1.42 K/uL (1.2-3.4); Lymphocytes % (auto) 19.3 %; Mean Corpuscular Hemoglobin 30.4 pg (25.0-34.0); Mean Corpuscular Hgb Conc 34.2 g/dL (32.0-36.0); Mean Corpuscular Volume 89.1 fL (80.0-100.0); Mean Platelet Volume 9.9 fL (9.4-12.4); Monocytes # (auto) 0.98 K/uL (0.11-0.59); Monocytes % (auto) 13.4 %; Neutrophils # (auto) 4.89 K/uL (1.40-6.50); Neutrophils % (auto) 66.6 %; Platelet Count 144 K/uL (130-400); RDW Coefficient of Variation 12.5 % (11.5-14.5); RDW Standard Deviation 41.5 fL (36.4-46.3); Red Blood Count 4.04 M/uL (4.70-6.10); White Blood Count 7.34 K/ul (4.8-10.8)
[2022-05-29] MEDS: MAGNESIUM SULFATE / D5W 1 GM/100 ML BAG IV SCH ×3 (06:40→09:20)
[2022-05-29 06:51] LABS: Partial Thromboplastin Ratio 1.8
[2022-05-29 06:55] LABS: Partial Thromboplastin Time 50.1 Seconds (21.0-31.0)
[2022-05-29] MEDS: ICU Protocol for HYPERglycemia SCH ×4 (07:45→21:36)
[2022-05-29] MEDS ORDERED: ASPIRIN 81 MG ECTAB PO SCH (09:00)
[2022-05-29] MEDS: METOPROLOL TARTRATE 25 MG TAB PO SCH ×3 (09:20→20:48)
[2022-05-29] MEDS: ASPIRIN 81 MG ECTAB PO SCH (09:20)
--- NOTE | 2022-05-29 09:46 | 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 Note ---
Date of Service: May 29, 2022 Patient seen and examined. EMR reviewed. Discussed with critical care LALY overnight. The patient is hemodynamically stable this morning. He is chest pain-free but complaining of a mild headache associated with the nitro. He is pending transfer to the [facility] this morning for evaluation of coronary artery disease. Troponin continues to increase. Echocardiograms been completed. Will continue low-dose beta-jonel. Hold KOKO inhibitor until hemodynamics allow for institution. Continue aspirin. Heparin duration to be determined based on coronary angiography. Discussed with patient and at bedside as well as critical care nurse and on multidisciplinary rounds. Additional 25 minutes coordinating care for this patient Coding Level of Care Code 81990 Prolonged Care (int'l)
--- NOTE | 2022-05-29 10:20 | Cardiology Consultation ---
Date of Consultation May 29, 2022 Assessment & Plan (1) Non-ST elevation [place] (NSTEMI): Presentation consistent with high-risk ACS and recommend proceeding with cardiac catheterization and possible PCI. No apparent contraindications to procedure. Discussed risks, benefits, alternatives of procedure with patient/ and they are willing to proceed. Further recommendations pending findings of coronary angiography. History of Present Illness Attending Physician: Pardeep Rae MD History of Present Illness Mr. Lizama is a very pleasant 61 year old man seen in ICU for ACS. 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 History obtained from patient, with aid of rebar bender. Past medical history includes remote Hepatitis A infection. Otherwise no active medical issues and on no medications. Currently participating with physical therapy for recent shoulder/neck issues and chronic back pain. Life long non- smoker. Mother from heart condition suddenly at 66. Reports new "tearing" central chest pain radiating to his back with associated shortness of breath initially occurring 5 days ago when walking up a slight grade after physical therapy. Pain/dyspnea has recurred since then with minimal exertion. Continued to have symptoms yesterday and was concerned may have Covid. In ED hypertensive initially, continued to have 1/10 chest pain relieved overnight with nitro infusion. ECG showed sinus rhythm with minimal ST elevation and q waves inferiorly. Initial HsTrop 6000[place] [address] this morning. Echo with preserved LV function with mild inferior/inferolateral hypokinesis. Allergies Allergy/AdvReac Type Severity Reaction Status Date / Time No Known Allergies Allergy Verified 05/28/22 20:26 Home Medications Medication Instructions Recorded Confirmed Type No Known Home Medications 05/28/22 05/28/22 History Patient History Medical History (Updated 05/29/22 @ 03:04 by SYDNEE Sandoval) Hepatitis A No pertinent family history Surgical History (Updated 05/29/22 @ 02:38 by Hiren Alexander) No pertinent past surgical history Social History Smoking Status: Never smoker Hx Alcohol Use: Yes Alcohol type: wine Hx Substance Use: No Preferred Language: [place] Citizen 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 Ability: Impaired 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 Tools: IPad, Letter Board and Physical Gestures Voice Instructor Required: Yes Beliefs That Will Affect Care: None Current Living Situation: Spouse and Family Current Living Situation Comment: Patient lives at home with and daughter Other Information That Helps Us Care for You: No Feels Safe at Home: Yes Safety Concerns: Feels Safe At This Time Assistive Devices: Glasses Review of Systems Review of Systems: All systems reviewed & are unremarkable except as noted in HPI & below Physical Exam Physical Exam: General: Comfortable HEENT: Sclerae anicteric Lungs: Clear to auscultation bilaterally, no crackles or wheezes Cardiac: Regular rate and rhythm, no murmurs. Vascular: 2+ radial, DP pulses. No bruits Abdomen: Soft, nontender Extremities: Well perfused, no peripheral edema Neuro: Nonfocal Psych: Alert orient x3, normal affect and mood Results & Data ([facility]) Vital Signs (Past 12 Hours) Vital Signs Temp Pulse Pulse Resp BP BP Pulse Ox 05/29/22 08:00 60 16 95 05/29/22 08:00 121/63 05/29/22 07:00 61 12 96 05/29/22 07:00 108/66 05/29/22 05:00 64 19 87 L 05/29/22 05:00 130/66 05/29/22 04:00 58 L 19 94 05/29/22 04:00 127/67 05/29/22 03:45 56 L 20 95 05/29/22 03:45 129/67 05/29/22 03:30 137/69 05/29/22 03:30 62 16 96 05/29/22 03:15 137/64 05/29/22 03:15 53 L 20 95 05/29/22 03:00 53 L 18 96 05/29/22 03:00 136/74 05/29/22 02:45 54 L 15 94 05/29/22 02:45 135/71 05/29/22 02:30 54 L 19 95 05/29/22 02:30 130/68 05/29/22 02:15 55 L 18 94 05/29/22 02:15 133/64 05/29/22 02:00 54 L 17 95 05/29/22 02:00 129/69 05/29/22 01:45 131/68 05/29/22 01:45 53 L 17 95 05/29/22 01:30 120/71 05/29/22 01:30 55 L 20 96 05/29/22 01:15 58 L 19 96 05/29/22 01:15 122/70 05/28/22 23:12 53 L 05/29/22 01:00 55 L 12 96 05/29/22 01:00 135/71 05/29/22 00:51 129/75 05/29/22 00:51 55 L 14 96 05/29/22 00:45 57 L 18 95 05/29/22 00:30 55 L 20 95 05/29/22 00:15 60 13 95 05/29/22 00:00 57 L 20 95 05/28/22 23:45 56 L 13 95 05/28/22 23:30 51 L 14 95 05/29/22 00:00 56 L 05/29/22 00:00 98.2 F 54 L 16 127/73 96 05/28/22 22:20 133/79 05/28/22 22:19 57 L 19 96 05/28/22 22:15 59 L 22 139/77 96 O2 Del Method 05/29/22 08:00 Room Air 05/29/22 08:00 05/29/22 07:00 05/29/22 07:00 05/29/22 05:00 05/29/22 05:00 05/29/22 04:00 05/29/22 04:00 05/29/22 03:45 05/29/22 03:45 05/29/22 03:30 05/29/22 03:30 05/29/22 03:15 05/29/22 03:15 05/29/22 03:00 05/29/22 03:00 05/29/22 02:45 05/29/22 02:45 05/29/22 02:30 05/29/22 02:30 05/29/22 02:15 05/29/22 02:15 05/29/22 02:00 05/29/22 02:00 05/29/22 01:45 05/29/22 01:45 05/29/22 01:30 05/29/22 01:30 05/29/22 01:15 05/29/22 01:15 05/28/22 23:12 05/29/22 01:00 05/29/22 01:00 05/29/22 00:51 05/29/22 00:51 05/29/22 00:45 05/29/22 00:30 05/29/22 00:15 05/29/22 00:00 05/28/22 23:45 05/28/22 23:30 05/29/22 00:00 05/29/22 00:00 Room Air 05/28/22 22:20 05/28/22 22:19 05/28/22 22:15 PG Care Time/CCT Total # of Minutes Spent Total Time Spent with Patient: Total time spent is greater than 50% in coordination of care (as documented) at patient's floor/unit and/or counseling patient: Coding Level of Care Code 17472 IN/OBS CONSULT LVL 4,60M Diagnoses Non-ST elevation WI (NSTEMI) I21.4
[2022-05-29] MEDS ORDERED: HEPARIN (PORCINE) 1000 UNIT/ML 10 ML (CATH LAB USE ONLY) ONE (10:23)
[2022-05-29] MEDS ORDERED: fentaNYL citrate PF 100 MCG/2 ML VIAL ONE (10:23)
[2022-05-29] MEDS ORDERED: niCARdipine HCL INJ 2.5 MG/ML 10 ML AMP ONE (10:23)
[2022-05-29] MEDS ORDERED: MIDAZOLAM HCL 1 MG/ML 2ML VIAL ONE ×2 (10:23→11:53)
[2022-05-29] MEDS ORDERED: NITROGLYCERIN/D5W 100MCG/ML 20ML SYR ONE (10:24)
--- NOTE | 2022-05-29 10:26 | Pre Anesthesia Assessment ---
Date of Service May 29, 2022 Pre Sedation Assessment Vital Signs Temp Pulse Pulse Resp BP BP Pulse Ox 05/29/22 08:00 60 16 95 05/29/22 08:00 121/63 05/29/22 07:00 61 12 96 05/29/22 07:00 108/66 05/29/22 05:00 64 19 87 L 05/29/22 05:00 130/66 05/29/22 04:00 58 L 19 94 05/29/22 04:00 127/67 05/29/22 03:45 56 L 20 95 05/29/22 03:45 129/67 05/29/22 03:30 137/69 05/29/22 03:30 62 16 96 05/29/22 03:15 137/64 05/29/22 03:15 53 L 20 95 05/29/22 03:00 53 L 18 96 05/29/22 03:00 136/74 05/29/22 02:45 54 L 15 94 05/29/22 02:45 135/71 05/29/22 02:30 54 L 19 95 05/29/22 02:30 130/68 05/29/22 02:15 55 L 18 94 05/29/22 02:15 133/64 05/29/22 02:00 54 L 17 95 05/29/22 02:00 129/69 05/29/22 01:45 131/68 05/29/22 01:45 53 L 17 95 05/29/22 01:30 120/71 05/29/22 01:30 55 L 20 96 05/29/22 01:15 58 L 19 96 05/29/22 01:15 122/70 05/28/22 23:12 53 L 05/29/22 01:00 55 L 12 96 05/29/22 01:00 135/71 05/29/22 00:51 129/75 05/29/22 00:51 55 L 14 96 05/29/22 00:45 57 L 18 95 05/29/22 00:30 55 L 20 95 05/29/22 00:15 60 13 95 05/29/22 00:00 57 L 20 95 05/28/22 23:45 56 L 13 95 05/28/22 23:30 51 L 14 95 05/28/22 20:05 63 05/29/22 00:00 56 L 05/29/22 00:00 98.2 F 54 L 16 127/73 96 05/28/22 22:20 133/79 05/28/22 22:19 57 L 19 96 05/28/22 22:15 59 L 22 139/77 96 05/28/22 22:10 55 L 15 136/70 95 05/28/22 22:05 54 L 14 129/72 96 05/28/22 22:00 56 L 15 129/73 96 05/28/22 21:55 64 19 97 05/28/22 21:55 155/85 H 05/28/22 21:50 58 L 18 94 05/28/22 21:50 150/89 H 05/28/22 21:35 62 15 97 05/28/22 21:35 151/94 H 05/28/22 21:31 84 20 05/28/22 21:31 192/108 H 05/28/22 21:30 76 18 05/28/22 21:25 65 22 156/80 H 99 05/28/22 21:15 60 25 H 176/108 H 97 05/28/22 21:00 72 14 185/136 H 96 05/28/22 20:45 65 24 96 05/28/22 20:30 57 L 17 181/96 H 97 05/28/22 20:15 67 14 94 05/28/22 20:09 162/95 H 05/28/22 20:09 70 23 95 05/28/22 20:05 61 22 97 05/28/22 18:26 99.1 F 70 20 198/92 H 97 O2 Del Method 05/29/22 08:00 Room Air 05/29/22 08:00 05/29/22 07:00 05/29/22 07:00 05/29/22 05:00 05/29/22 05:00 05/29/22 04:00 05/29/22 04:00 05/29/22 03:45 05/29/22 03:45 05/29/22 03:30 05/29/22 03:30 05/29/22 03:15 05/29/22 03:15 05/29/22 03:00 05/29/22 03:00 05/29/22 02:45 05/29/22 02:45 05/29/22 02:30 05/29/22 02:30 05/29/22 02:15 05/29/22 02:15 05/29/22 02:00 05/29/22 02:00 05/29/22 01:45 05/29/22 01:45 05/29/22 01:30 05/29/22 01:30 05/29/22 01:15 05/29/22 01:15 05/28/22 23:12 05/29/22 01:00 05/29/22 01:00 05/29/22 00:51 05/29/22 00:51 05/29/22 00:45 05/29/22 00:30 05/29/22 00:15 05/29/22 00:00 05/28/22 23:45 05/28/22 23:30 05/28/22 20:05 05/29/22 00:00 05/29/22 00:00 Room Air 05/28/22 22:20 05/28/22 22:19 05/28/22 22:15 05/28/22 22:10 05/28/22 22:05 05/28/22 22:00 05/28/22 21:55 05/28/22 21:55 05/28/22 21:50 05/28/22 21:50 05/28/22 21:35 05/28/22 21:35 05/28/22 21:31 05/28/22 21:31 05/28/22 21:30 05/28/22 21:25 05/28/22 21:15 05/28/22 21:00 05/28/22 20:45 05/28/22 20:30 05/28/22 20:15 05/28/22 20:09 05/28/22 20:09 05/28/22 20:05 05/28/22 18:26 Room Air Cardiovascular RRR, no murmur, no edema Pre-Sedation Airway Assessment Smoking Status: Never smoker Hx Sleep Apnea: No Short, Thick Neck: No Thyromental Distance: > or= 3.5 Finger Breadths Oral Cavity: + WNL Mallampati Class: III ASA: ASA3 NPO Status Date of Last Intake of Fluids: 05/28/22 Date of Last Intake of Solid Food: 03/13/23 Procedure Planning Contraindications for Sedation: none Current Medications Reviewed: Yes Notes The planned sedation has been discussed with the patient. Informed Consent was obtained. I have identified the patient, determined the appropriateness of sedation and have assessed the patient immediately prior to the procedure. All medicine(s) and interventions are by my order.
[2022-05-29] MEDS ORDERED: ADENOSINE IV SOLN 3 MG/ML 20 ML VIAL IV ONE (11:21)
[2022-05-29] MEDS ORDERED: TICAGRELOR 90 MG TAB ONE (11:26)
--- NOTE | 2022-05-29 12:55 | Post Anesthesia Assessment ---
Date of Service May 29, 2022 Post Sedation Assessment Vital Signs Temp Pulse Pulse Resp BP BP Pulse Ox 05/29/22 12:45 63 20 122/78 96 05/29/22 12:29 58 L 20 115/74 96 05/29/22 10:25 62 18 115/63 95 05/29/22 08:00 60 16 95 05/29/22 08:00 121/63 05/29/22 07:00 61 12 96 05/29/22 07:00 108/66 05/29/22 05:00 64 19 87 L 05/29/22 05:00 130/66 05/29/22 04:00 58 L 19 94 05/29/22 04:00 127/67 05/29/22 03:45 56 L 20 95 05/29/22 03:45 129/67 05/29/22 03:30 137/69 05/29/22 03:30 62 16 96 05/29/22 03:15 137/64 05/29/22 03:15 53 L 20 95 05/29/22 03:00 53 L 18 96 05/29/22 03:00 136/74 05/29/22 02:45 54 L 15 94 05/29/22 02:45 135/71 05/29/22 02:30 54 L 19 95 05/29/22 02:30 130/68 05/29/22 02:15 55 L 18 94 05/29/22 02:15 133/64 05/29/22 02:00 54 L 17 95 05/29/22 02:00 129/69 05/29/22 01:45 131/68 05/29/22 01:45 53 L 17 95 05/29/22 01:30 120/71 05/29/22 01:30 55 L 20 96 05/29/22 01:15 58 L 19 96 05/29/22 01:15 122/70 05/28/22 23:12 53 L 05/29/22 01:00 55 L 12 96 05/29/22 01:00 135/71 05/29/22 00:51 129/75 05/29/22 00:51 55 L 14 96 05/29/22 00:45 57 L 18 95 05/29/22 00:30 55 L 20 95 05/29/22 00:15 60 13 95 05/29/22 00:00 57 L 20 95 05/28/22 23:45 56 L 13 95 05/28/22 23:30 51 L 14 95 05/28/22 20:05 63 05/29/22 00:00 56 L 05/29/22 00:00 98.2 F 54 L 16 127/73 96 05/28/22 22:20 133/79 05/28/22 22:19 57 L 19 96 05/28/22 22:15 59 L 22 139/77 96 05/28/22 22:10 55 L 15 136/70 95 05/28/22 22:05 54 L 14 129/72 96 05/28/22 22:00 56 L 15 129/73 96 05/28/22 21:55 64 19 97 05/28/22 21:55 155/85 H 05/28/22 21:50 58 L 18 94 05/28/22 21:50 150/89 H 05/28/22 21:35 62 15 97 05/28/22 21:35 151/94 H 05/28/22 21:31 84 20 05/28/22 21:31 192/108 H 05/28/22 21:30 76 18 05/28/22 21:25 65 22 156/80 H 99 05/28/22 21:15 60 25 H 176/108 H 97 05/28/22 21:00 72 14 185/136 H 96 05/28/22 20:45 65 24 96 05/28/22 20:30 57 L 17 181/96 H 97 05/28/22 20:15 67 14 94 05/28/22 20:09 162/95 H 05/28/22 20:09 70 23 95 05/28/22 20:05 61 22 97 05/28/22 18:26 99.1 F 70 20 198/92 H 97 O2 Del Method 05/29/22 12:45 Room Air 05/29/22 12:29 Room Air 05/29/22 10:25 Room Air 05/29/22 08:00 Room Air 05/29/22 08:00 05/29/22 07:00 05/29/22 07:00 05/29/22 05:00 05/29/22 05:00 05/29/22 04:00 05/29/22 04:00 05/29/22 03:45 05/29/22 03:45 05/29/22 03:30 05/29/22 03:30 05/29/22 03:15 05/29/22 03:15 05/29/22 03:00 05/29/22 03:00 05/29/22 02:45 05/29/22 02:45 05/29/22 02:30 05/29/22 02:30 05/29/22 02:15 05/29/22 02:15 05/29/22 02:00 05/29/22 02:00 05/29/22 01:45 05/29/22 01:45 05/29/22 01:30 05/29/22 01:30 05/29/22 01:15 05/29/22 01:15 05/28/22 23:12 05/29/22 01:00 05/29/22 01:00 05/29/22 00:51 05/29/22 00:51 05/29/22 00:45 05/29/22 00:30 05/29/22 00:15 05/29/22 00:00 05/28/22 23:45 05/28/22 23:30 05/28/22 20:05 05/29/22 00:00 05/29/22 00:00 Room Air 05/28/22 22:20 05/28/22 22:19 05/28/22 22:15 05/28/22 22:10 05/28/22 22:05 05/28/22 22:00 05/28/22 21:55 05/28/22 21:55 05/28/22 21:50 05/28/22 21:50 05/28/22 21:35 05/28/22 21:35 05/28/22 21:31 05/28/22 21:31 05/28/22 21:30 05/28/22 21:25 05/28/22 21:15 05/28/22 21:00 05/28/22 20:45 05/28/22 20:30 05/28/22 20:15 05/28/22 20:09 05/28/22 20:09 05/28/22 20:05 05/28/22 18:26 Room Air Recovery Score Activity: Moves 4 extremities Respiration: Deep Breath/Cough Circulation: +/-20% PreAnes Value Consciousness: Fully Awake Oxygen Saturation: > 92% On Room Air Post Anesthesia Score: 10 Discharge Sedation Level of Care: Fast Track Phase II Post Sedation Plan On clinical assessment, the patient appears to have tolerated the sedation without complications. Patient is recovering as anticipated. Patient will continue to be monitored by nursing and may be discharged when sedation discharge criteria are met per below protocol. Upon Completions of procedure up to 15 minutes continue every 5 minute vital signs and the P.A.R. score; then discharge to a Phase I or Fast Track to Phase II per the following guidelines: * Discharge Patient to appropriate Phase II area if PAR is 8 or greater or return to pre- procedure baseline. The post - procedure orders will be as directed. * If PAR score is less than 8 or not return to pre-procedure baseline then patient will follow Phase I monitoring till PAR is reached for Phase II. The Phase I may be done in procedure room or may call to secure a Phase I area. * If naloxone or flumazenil are used for reversal, hold in Phase I for continued monitoring from when last reversal dose was given for a minimum of 60 minutes or longer pending the nurse and/or physician discretion of patient condition before discharge to Phase II. Please call the Sedation Physician to re-evaluate and complete post-note for discharge to Phase II area. Do NOT discharge from procedure sedation or Phase 1 until post- sedation evaluation note is complete by procedure /sedation MD Sedation Discharge Instructions to be given to the patient at discharge to home.
--- NOTE | 2022-05-29 13:02 | Cardiac Catheterization ---
[facility] Data: Veneer Jointer Cardiac Status Clinical evaluation leading to the procedure CAD Presenation: Non STEMI Anginal Classification: CCS IV Diagnostic Physicians Name: Michael Garduno MD Closure Device Recommendations: PCI without planned CABG Cardiac Cath Procedure Full Procedure Date May 29, 2022 Pre-Procedure Diagnosis Pre-Procedure Diagnosis: Non STEMI AUC Score AUC Score: 8 Post-Procedure Diagnosis Post-Procedure Diagnosis: Severe CAD, Successful PCI and Elevated Intracardiac Pressures Procedure(s) Performed Procedure(s) Performed: Coronary Angiography, Left Heart Cath, Drug Eluting Stent, IVUS and Fractional Flow [employer] Secretary Michael Garduno MD Rn Urgent Care(s) [place] Estimated Blood Loss Estimated Blood Loss: 10 Medication(s) Medication(s): Adenosine, Fentanyl, Heparin, Lidocaine 1%, Nicardipine, Nitroglycerin and Versed Medication(s): Ticagrelor Summary of Findings Indication: NSTEMI Access: 6 Fr right radial artery Catheters: Reserve, JR4 guide, EBU 3.5 guide Findings: LM -Short, normal caliber, 20% distal disease LAD -medium caliber, 70% earlymid stenosis just after takeoff of high D1. After stenosis LAD ectatic prior to 50 to 60% stenosis at takeoff of small D2. Remainder LAD without significant disease, tapers prior to apex. Medium D1 with 50% ostial stenosis. Small D2 95% ostial stenosis. Large D3 without disease. Circumflex -medium caliber vessel, 20 to 30% mid segment disease, medium OM 2 without significant disease. RCA -dominant, large caliber, 30-40% mid segment disease, acute 98% distal stenosis with heavy thrombus burden. LEORA I flow in PDA, posterior AV branch. 60% ostial RPDA. PLB/PDA partially fill retrograde via [id number] collaterals. LVEDP -20 -- PCI -- Antithrombotic therapy: Heparin, ticagrelor Procedure: RCA cannulated with JR4 guide Pre-procedure flow LEORA 1 Instrumentation Supervisor 50 wire passed across lesion into distal vessel Distal RCA lesion predilated with 2.5 compliant balloon Dilated lesion stented with 3.5 x 22 mm [place] drug-eluting stent Stent post-dilated with 4.0 noncompliant balloon IC vasodilators administered for spasm Post procedure LEORA 3 flow, stent well expanded with minimal residual stenosis and no apparent cardiac complications. FFR/IVUS/PCI of LAD Left main cannulated with EBU 3.5 guide Preprocedure flow LEORA III Instrumentation Supervisor 50 wire navigated across earlymid LAD lesion into distal vessel ACIST Catheter placed across stenosis Pd/Pa 0.93 FFR 0.79 Catheter removed and Vidal IVUS catheter placed across stenosis IVUS revealed severe mid LAD disease, mild to moderately calcified between first and second diagonal (MLA 2.8 mm). Mild eccentric proximal disease extending back to distal left main. Earlymid LAD stented with 3.0 x 12 mm Yonatan LEBRON extending across takeoff of D2 Stent postdilated with 4.0 NC IC vasodilators administered for spasm Post procedure IVUS showed well expanded, well apposed stent with no apparent edge complications. Angiographically post procedure LEORA 3 flow, stent well expanded with minimal residual stenosis. Residual moderate ostial D1 disease and severe disease involving ostium of small jailed D2 but LEORA-3 flow in diagonals. Arterial Closure: TR band Summary: 1. Severe multivessel coronary artery disease 98% acute distal RCA with LEORA I-II distal flow and faint [id number]-hi-[id number] collaterals 70% earlymid LAD (0.79 by FFR) 2. Elevated intracardiac filling pressure 3. Successful PCI of distal RCA with single LEBRON (3.5 x 22 mm [place]; postdilated with 4.0 NC). 4. Successful PCI of earlymid LAD with single LEBRON (3.0 x [address]: Postdilated with 4.0 NC). Recommendations: Okay for telemetry for continued monitoring Loaded with ticagrelor 180 mg in Veneer Jointer Continue dual-antiplatelet therapy for at least 1 year Continue statin, and ASCVD risk factor modification Consult cardiac Rehab Hemodynamics Rest Ao:: 103/60/82 Final Ao: 100/56/75 LV: 106/20 Recommendations Recommendations: PCI without planned CABG Specimens Specimens: None Radiation Exposure (mGy) 2119 Contrast (mls) 215 Anesthesia Moderate [id number] Procedural Complication(s) None Disposition ICU I attest to the content of the Intraoperative Record and any orders documented therein. Any exceptions are noted below. [facility] Card Cath Procedure Codes Cardiac Catheterization Procedure 1: Cardiovascular Cath Procedures: 35182 Coronaries and LHC (+/-LV) Procedure 2: Cardiovascular Cath Procedures: 87287 (Doppler) Pressure Wire Therapeutic Services & Ancillary Procedure 1: Cardiovascular Tx and Anc Procedures: 99479 IV Ultrasound (Coronary or Graft) Moderate Sedation Procedure 1: Sedation/Anesthesia: 87106 Mod Sedation by the same physician;Init15 Min Child Age 5 & Up Procedure 2: Sedation/Anesthesia: 36590 Mod Sedation by the same physician; Ea [id number] Minutes Stenting Procedure 1: Cardiovascular Stent Procedures: 99707 Perc transcatheter placement of intracoronary stent(s), with ang Procedure 2: Cardiovascular Stent Procedures: 89292 Ea addl branch of a major coronary artery PG Care Time/CCT Total # of Minutes Spent Total Time Spent with Patient: Total time spent is greater than 50% in coordination of care (as documented) at patient's floor/unit and/or counseling patient:
--- NOTE | 2022-05-29 13:25 | Hospitalist Progress Note ---
Date of Service May 29, 2022 Assessment & Plan (1) Non-ST elevation [place] (NSTEMI): Plan: NSTEMI S/P LEBRON to distal RCA and early-mid LAD on 05/29/22 --CTA:No evidence for a pulmonary embolus. --ECHO pending Continue aspirin, Lipitor, metoprolol, Brilinta Appreciate cardiology, application integration engineer input Nitro, heparin drip discontinued Hypertensive Urgency Likely situational Continue losartan, metoprolol Monitor Blood pressure Hyperlipidemia Continue statin as above Prediabetes HbA1c 5.7 Medical Administrative on lifestyle changes Prostatic adenoma H/O chronic prostatitis as per records Elevated outpatient PSA Needs Urology follow up as outpatient DVT Px: IV heparin discontinued SCDs Code Status Full code Admission and Anticipated Discharge Date Admission Date: May 28, 2022 Subjective Patient is seen and examined at bedside Had cardiac catheterization earlier today Chest pain resolved Denies any dyspnea, dizziness, nausea, abdominal pain No other complaints Review of Systems Review of Systems: All systems reviewed & are unremarkable except as noted in Subjective Physical Exam Physical Exam: Physical Exam: Vitals signs as noted above General Appearance:Moderately built and nourished, no apparent distress Head: normocephalic, Atraumatic Eyes: normal inspection, EOMI Neck: supple, Trachea midline Respiratory/Chest: Normal breath sounds, CTA, No accessory muscle use Cardiovascular: S1, S2, No murmur Abdomen/GI:Soft, Non tender, Bowel sounds present Extremities/Musculoskeletal:normal inspection, no edema Neurologic/Psych:AAOX3, grossly no focal neurological deficits Skin: normal color, warm Results & Data Results & Data ([facility]) Vital Signs (Past 12 Hours) Vital Signs Pulse Pulse Resp BP BP Pulse Ox O2 Del Method 05/29/22 12:45 63 20 122/78 96 Room Air 05/29/22 12:29 58 L 20 115/74 96 Room Air 05/29/22 10:25 62 18 115/63 95 Room Air 05/29/22 08:00 60 16 95 Room Air 05/29/22 08:00 121/63 05/29/22 07:00 61 12 96 05/29/22 07:00 108/66 05/29/22 05:00 64 19 87 L 05/29/22 05:00 130/66 05/29/22 04:00 58 L 19 94 05/29/22 04:00 127/67 05/29/22 03:45 56 L 20 95 05/29/22 03:45 129/67 05/29/22 03:30 137/69 05/29/22 03:30 62 16 96 05/29/22 03:15 137/64 05/29/22 03:15 53 L 20 95 05/29/22 03:00 53 L 18 96 05/29/22 03:00 136/74 05/29/22 02:45 54 L 15 94 05/29/22 02:45 135/71 05/29/22 02:30 54 L 19 95 05/29/22 02:30 130/68 05/29/22 02:15 55 L 18 94 05/29/22 02:15 133/64 05/29/22 02:00 54 L 17 95 05/29/22 02:00 129/69 05/29/22 01:45 131/68 05/29/22 01:45 53 L 17 95 05/29/22 01:30 120/71 05/29/22 01:30 55 L 20 96 Laboratory Results Short CBC 05/28/22 05/29/22 Range/Units 18:51 05:36 WBC 9.81 7.34 (4.8-10.8) K/ul Hgb 14.7 12.3 L (14.0-18.0) g/dl Hct 44.1 36.0 L (42.0-52.0) % Plt Count 189 144 (130-400) K/uL BMP 05/28/22 05/29/22 18:51 05:36 Sodium 140 138 Potassium 4.1 3.9 Chloride 104 106 Carbon Dioxide 33 H 26 BUN 16 12 Creatinine 1.17 1.05 Glucose 136 H 123 H Calcium 9.6 8.8 Liver Function 05/28/22 05/29/22 Range/Units 18:51 05:36 Total Bilirubin 0.5 0.8 (0.2-1.0) mg/dl AST 83 H 77 H (13-39) U/L ALT 33 28 (7-52) U/L Alkaline Phosphatase 44 33 L (34-104) U/L Albumin 4.5 3.6 (3.4-5.0) gm/dl
--- NOTE | 2022-05-29 17:43 | XCELERA ---
[id number]
[2022-05-29] MEDS: TICAGRELOR 90 MG TAB PO SCH (20:49)
[2022-05-30 05:20] LABS: Calcium 8.6 mg/dl (8.5-10.1); Creatinine Clr Calc Pharmacy 62.3 ml/min; Est GFR (African American) 78.6 ml/min; Est GFR (Non-African American) 67.8 ml/min; Phosphorus 2.9 mg/dl (2.5-4.9); Potassium 4.2 mmol/L (3.5-5.1)
--- NOTE | 2022-05-30 05:54 | Electrocardiogram Report ---
Test Reason : Blood Pressure : / mmHG Vent. Rate : 058 BPM Atrial Rate : 058 BPM P-R Int : 154 ms QRS Dur : 092 ms QT Int : 448 ms P-R-T Axes : 067 054 -46 degrees QTc Int : 439 ms Sinus bradycardia Possible Left atrial enlargement Inferior infarct , age undetermined T wave abnormality, consider inferior ischemia Nonspecific ST abnormality Abnormal ECG No previous ECGs available Confirmed by Louis Roger ([id number]) on 05/30/2022 5:53:55 AM Referred By: Lisa Higgins Confirmed By:Louis Roger
--- NOTE | 2022-05-30 05:58 | Electrocardiogram Report ---
Test Reason : Blood Pressure : / mmHG Vent. Rate : 057 BPM Atrial Rate : 057 BPM P-R Int : 138 ms QRS Dur : 088 ms QT Int : 440 ms P-R-T Axes : 024 015 -46 degrees QTc Int : 428 ms Sinus bradycardia Inferior infarct (cited on or before 28-MAY-2022) T wave abnormality, consider inferior ischemia Nonspecific ST abnormality Abnormal ECG When compared with ECG of 28-MAY-2022 18:42, No significant change was found Confirmed by Louis Roger ([id number]) on 05/30/2022 5:57:38 AM Referred By: Lisa Higgins Confirmed By:Louis Roger
[2022-05-30 06:00] LABS: Hemoglobin 12.1 g/dl (14.0-18.0); Mean Corpuscular Hemoglobin 30.7 pg (25.0-34.0); Mean Corpuscular Hgb Conc 33.6 g/dL (32.0-36.0); Mean Corpuscular Volume 91.4 fL (80.0-100.0); Platelet Count 140 K/uL (130-400); Platelet Estimate Normal (Normal); RDW Coefficient of Variation 12.6 % (11.5-14.5); Red Blood Count 3.94 M/uL (4.70-6.10); White Blood Count 7.26 K/ul (4.8-10.8)
--- NOTE | 2022-05-30 07:45 | Critical Care Progress Note ---
Date of Service May 30, 2022 Assessment & Plan (1) Non-ST elevation [place] (NSTEMI): Plan: Impression: 61-year-old male presents to the ICU with NSTEMI status postcardiac catheterization with drug-eluting stent x2. He is chest pain-free and hemodynamically stable. Recommendations: 1. Acute coronary syndrome: Status post LEBRON. Currently on aspirin, Lipitor, Cozaar, and metoprolol as well as Brilinta. Will need cardiac rehab in the outpatient setting. 2. Borderline anemia. No evidence of acute blood loss. Outpatient follow-up with repeat CBC and anemia work-up. 3. Patient's critical care issues appear resolved. He is stable for transfer out of the ICU or potential dismissal from the hospital. Ultimate disposition will be deferred to cardiology and patient's primary service. Critical care services will sign off. Feel free to contact us with additional questions or concerns. (2) Dyspnea: Admission and Anticipated Discharge Date Admission Date: May 28, 2022 Subjective Patient seen and examined. EMR reviewed. The patient underwent cardiac catheterization with stent placement x2 yesterday. He is chest pain-free. His headache is resolved. He is tolerating a diet. He is off oxygen. He is ambulatory. He is anxious to be dismissed from the hospital. Review of Systems Review of Systems: All systems reviewed & are unremarkable except as noted in Subjective Physical Exam Constitutional: WD/WN, vitals as above Neck: trachea midline, no thyromegaly Respiratory: normal respiratory effort, lungs clear to auscultation Cardiovascular: RRR, no murmur, no edema Gastrointestinal (Abdomen): normal bowel sounds, soft, nontender, no hepatosp lenomegaly Musculoskeletal: Extremities: extremities normal to inspection Skin: no rashes, warm and dry Neurologic: Nonfocal exam Lymphatic: no cervical lymphadenopathy Results & Data Results & Data ([facility]) Vital Signs (Past 12 Hours) Vital Signs Temp Pulse Resp BP Pulse Ox 05/30/22 04:00 61 13 95 05/30/22 04:00 37.5 C 102/59 L 05/30/22 03:00 59 L 14 97 05/30/22 03:00 120/64 05/30/22 02:00 59 L 17 96 05/30/22 02:00 108/62 05/30/22 01:00 59 L 18 96 05/30/22 01:00 103/61 05/30/22 00:00 61 18 98 05/30/22 00:00 103/61 05/29/22 23:00 61 17 95 05/29/22 23:00 113/66 05/29/22 22:00 62 16 97 05/29/22 22:00 110/63 05/29/22 21:01 107/64 05/29/22 21:01 65 17 87 L 05/29/22 21:00 96 H 20 94 05/29/22 20:00 59 L 20 95 05/29/22 20:00 110/64 05/30/22 00:00 59 L Laboratory Results 05/30/22 04:24 05/30/22 04:24 Diagnostic Findings No new imaging Coding Level of Care Code 91522 SUB INP/OBS CARE 235MIN Diagnoses Non-ST elevation UT (NSTEMI) I21.4 Dyspnea R06.00
[2022-05-30] MEDS: ICU Protocol for HYPERglycemia SCH ×2 (08:16→12:50)
[2022-05-30] MEDS: METOPROLOL TARTRATE 25 MG TAB PO SCH (08:17)
[2022-05-30] MEDS: TICAGRELOR 90 MG TAB PO SCH (08:17)
[2022-05-30] MEDS: ASPIRIN 81 MG ECTAB PO SCH (08:17)
[2022-05-30] MEDS ORDERED: LOSARTAN POTASSIUM 25 MG TAB PO SCH (09:00)
[2022-05-30] MEDS ORDERED: ATORVASTATIN 40 MG TAB PO SCH (09:00)
--- NOTE | 2022-05-30 13:38 | Discharge Summary ---
Discharge Summary Date of Service May 30, 2022 Admission HPI Per Admitting Provider History obtained from patient, family, and records. History obtained with the help of language line translation service. Medical history significant for chronic back pain, prostatic adenoma as per records. 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 For the last 4 days, patient noted achy radiating to the chest back pain associated with some shortness of breath. Symptoms somewhat different from chronic back pain attributed to old volleyball sports injury. No cough symptoms. Achy neck pain with transient headache symptoms. Some stress with some war related deaths in the family back home in [facility]. Patient brought to ER by work colleague for evaluation. SBP 190s at the ER. Aspirin, Nitropaste, IV heparin initiated at the ER for ACS. 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 Prostatic adenoma H/O chronic prostatitis as per records Elevated outpatient PSA Needs Urology follow up as outpatient DVT Px: IV heparin discontinued SCDs Code Status Full code Updated Medication List Medication Instructions Recorded Confirmed Type aspirin 81 mg tablet,delayed 81 mg PO QAM #90 tabs 05/30/22 Rx release atorvastatin 40 mg tablet 80 mg PO QAM #30 tabs 05/30/22 Rx losartan 25 mg tablet 25 mg PO QAM #30 tabs 05/30/22 Rx metoprolol tartrate 25 mg tablet 12.5 mg PO BID #30 tabs 05/30/22 Rx ticagrelor 90 mg tablet (Brilinta) 90 mg PO BID #60 tabs 05/30/22 Rx Hospital Stay Data Consultations 05/28/22 20:12 ED Decision to Admit Stat 05/28/22 23:20 Consult Cardiology Routine Consult [employer] Routine 05/29/22 12:58 Consult Cardiac Rehabilitation Routine Procedures Performed Operation Date: 05/29/22 12:00 Actual Procedures p Cineradiography w/Routine Exam - Adilson Garduno MD p Cath, Left with Cors and Vent - Adilson Garduno MD s Fraction Flow Pep SGL Ves - Adilson Garduno MD s IVUS Coronary Single Vessel - Adilson Garduno MD s Drug Eluting Stent SGl Vessel - Adilson Garduno MD s Drug Eluting Stent each ADDTL Vessel - Adilson Garduno MD Diagnostic Imagining Performed 05/28/22 19:34 CT angio chest PE protocol Stat 05/28/22 21:25 CT head/brain wo con Stat 05/29/22 07:52 CL IVUS Coronary Single Vessel Routine 05/29/22 09:07 CL Cath Imgs for PACS use only Routine Pending Results Patient Have Any Pending Studies at Discharge: No Discharge Instructions Given to Patient (Per Discharging Provider) Please take all medications as instructed on discharge list below. You have undergone a cardiac catheterization and two stents were placed into coronary arteries to improve the blood flow to your heart muscle. It is important to continue all the listed medications and obtain refills from your outpatient physician. Please follow-up at the date and time listed above. Your medications were sent to: [facility] [address] [place] [id number] It was a pleasure taking care of you! Please call if you have any questions or problems. You can reach a [facility] hospitalist on duty at [facility] 24 hours a day by calling [phone]. Take care of yourself. Hetal Latham, DO [facility] Hospitalist
--- NOTE | 2022-05-30 18:42 | Cardiology Progress Note ---
Date of Service May 30, 2022 Assessment & Plan (1) Non-ST elevation [place] (NSTEMI): Plan: --post PCI with LEBRON to RCA 2. Severe nonculprit CAD -- post PCI with LEBRON to LAD 3. Dyslipidemia - LDL 162 4. Anemia - f/up as outpatient Patient doing well from a cardiac standpoint post PCI yesterday. OK with discharge today. Home on: - DAPT with ASA/Ticagrelor - Continue current losartan. Transition metoprolol to toprol XL - Continue atorvastatin 80mg Follow-up with me in 2 weeks. Will discuss cardiac rehab. Admission and Anticipated Discharge Date Admission Date: May 28, 2022 Subjective Feeling well this morning. No recurrent chest pain. No other new concerns. telemetry reviewed -- no events. Review of Systems Review of Systems: All systems reviewed & are unremarkable except as noted in HPI & below Physical Exam Physical Exam: General: Comfortable HEENT: Sclerae anicteric Lungs: Clear to auscultation bilaterally, no crackles or wheezes Cardiac: Regular rate and rhythm, no murmurs. Vascular: 2+ radial/no hematoma or ecchymosis. Abdomen: Soft, nontender Extremities: Well perfused, no peripheral edema Neuro: Nonfocal Psych: Alert orient x3, normal affect and mood Results & Data Vital Signs (Past 12 Hours) Vital Signs Temp Pulse Pulse Resp BP BP Pulse Ox 05/30/22 15:09 99.5 F 63 18 122/78 95 05/30/22 11:28 57 L 05/30/22 11:00 57 L 18 05/30/22 10:50 126/67 05/30/22 10:50 60 22 05/30/22 10:00 52 L 16 05/30/22 08:00 68 16 95 05/30/22 08:00 113/61 05/30/22 07:00 61 18 95 05/30/22 07:00 107/60 05/30/22 06:45 56 L 14 96 05/30/22 08:00 68 O2 Del Method 05/30/22 15:09 05/30/22 11:28 05/30/22 11:00 05/30/22 10:50 05/30/22 10:50 05/30/22 10:00 05/30/22 08:00 Room Air 05/30/22 08:00 05/30/22 07:00 05/30/22 07:00 05/30/22 06:45 05/30/22 08:00 PG Care Time/CCT Total # of Minutes Spent Total Time Spent with Patient: Total time spent is greater than 50% in coordination of care (as documented) at patient's floor/unit and/or counseling patient: Coding Level of Care Code 59060 SUB INP/OBS CARE 3/50MIN Diagnoses Non-ST elevation NJ (NSTEMI) I21.4
--- NOTE | 2022-05-31 05:59 | Electrocardiogram Report ---
Test Reason : Blood Pressure : / mmHG Vent. Rate : 056 BPM Atrial Rate : 056 BPM P-R Int : 156 ms QRS Dur : 088 ms QT Int : 464 ms P-R-T Axes : 066 012 -49 degrees QTc Int : 447 ms Sinus bradycardia Inferior infarct (cited on or before 28-MAY-2022) T wave abnormality, consider inferior ischemia Abnormal ECG When compared with ECG of 28-MAY-2022 19:30, No significant change was found Confirmed by Louis Roger ([id number]) on 05/31/2022 5:59:18 AM Referred By: Lisa Higgins Confirmed By:Louis Roger
--- NOTE | 2022-05-31 23:34 | Electrocardiogram Report ---
Test Reason : Blood Pressure : / mmHG Vent. Rate : 058 BPM Atrial Rate : 058 BPM P-R Int : 152 ms QRS Dur : 090 ms QT Int : 478 ms P-R-T Axes : 065 007 -57 degrees QTc Int : 469 ms Poor data quality, interpretation may be adversely affected Sinus bradycardia Inferior infarct (cited on or before 28-MAY-2022) T wave abnormality, consider inferolateral ischemia Abnormal ECG When compared with ECG of 29-MAY-2022 05:11, T wave inversion more evident in Inferolateral leads Confirmed by Louis Roger ([id number]) on 05/31/2022 11:34:01 PM Referred By: Lisa Higgins Confirmed By:Louis Roger
== END 2022-05-30 16:16 | disposition home or self-care (01) | DRG 247 ==
LOC: ED 18:21 → SUATTDRO 21:44 → 1E 21:44

== ENCOUNTER 2022-06-27 10:28 | Observation (INO) ==
--- NOTE | 2022-06-27 11:02 | Emergency Department Note ---
Impression & Plan Chest pain, Abnormal EKG, Elevated troponin I level ED Provider Note NAME: THAO GARRIDO AGE: 62 SEX: M : 1960 ARRIVES VIA: Walk-In INFORMANT: Patient, ED PROVIDER(S): Peng Avalos DO CHIEF COMPLAINT: Chest pain HPI: The patient is a 62-year-old male who presented to the emergency department for an evaluation of chest pain. The patient describes anterior chest pain which began yesterday. He states the pain was worse yesterday and constant but now has lightened up somewhat and is lessened today. The patient was recently discharged in our facility. He had a cardiac catheterization after he was diagnosed with an NSTEMI. The patient states the pain felt similar yesterday. He denies having any vomiting. He denies having any back pain. He states the pain is not worsened with lying flat. The patient has not had any recent fever or cough. The patient states has been compliant with his outpatient medications that were prescribed for him after his visit here. ROS: See above HPI for pertinent positives & negatives. A total of 10 systems reviewed and were otherwise negative. PAST MEDICAL HISTORY: See Below PAST SURGICAL HISTORY: See Below FAMILY HISTORY: See Below SOCIAL HISTORY: See Below HOME MEDICATIONS: See Below ALLERGIES: See Below VITALS: See Below PHYSICAL EXAMINATION: GENERAL: Patient is awake alert in no acute distress patient is resting comfortably and showing no signs of anxiety EYES: The conjunctivae are clear. The pupils are round and reactive. EARS, NOSE, MOUTH AND THROAT: The nose is without any evidence of any deformity. NECK: The neck is nontender and supple. RESPIRATORY: Normal respiratory effort is noted there is no evidence of wheezing rhonchi or rales CARDIOVASCULAR: Regular rate and rhythm noted there no murmurs rubs or gallops normal S1 normal S2. GASTROINTESTINAL: The abdomen is soft. Abdomen is nontender. MUSCULOSKELETAL/EXTREMITIES: There is no evidence of gross deformity full range of motion is noted in the hips and shoulders. SKIN: There is no obvious evidence of any rash. There are no petechiae, pallor or cyanosis noted. NEUROLOGIC: Patient is awake alert and oriented x3. MEDICAL DECISION MAKING: The patient is a 62-year-old male who presented to the emergency department for an evaluation of chest pain. The patient was recently in our facility approximately 1 month ago. At that time he was admitted for an NSTEMI. He had a cardiac catheterization which showed severe coronary artery disease. He received 2 coronary artery stents at that time. The patient states that for 3 weeks he was pain-free. He started noticing return of pain over the course last few days. Pain was somewhat exertional but not all the time. The patient's EKG did show some abnormal findings but this could be related to the patient's evolution of his post NSTEMI EKG. the patient was treated with aspirin in the emergency department. Pain was significantly improved on reevaluation. The patient was interviewed with the help of the sample dye mixer. I did discuss the patient's laboratory and radiographic studies with him. I discussed the limitations of the emergency department work-up for chest pain with him. Ultimately given the patient's EKG changes as well as his mild elevation in troponin I do feel he may require further inpatient work-up. For this reason I discussed this case with the on-call [facility]. Triage Nursing notes reviewed. Prior medical records reviewed Vital Signs: reviewed and remarkable for no significant abnormalities Differential diagnosis: Cardiac ischemia, aortic dissection, pulmonary embolism, pneumothorax, pneumonia, pericarditis, myocarditis, esophageal rupture, GERD, cholecystitis, pancreatitis, musculoskeletal, as well as other pathologies. ER treatment provided: See below Diagnostics interpreted by me: ECG: EKG was obtained in the emergency department. My interpretation is normal sinus rhythm at 61 bpm. There is no ectopy. Inferior T wave inversions were noted. Peaked T waves were noted in the apical and high lateral leads. This was compared to a tracing from May 29, 2022. The T wave abnormalities in the apical and high lateral leads are new compared to the previous tracing otherwise no significant changes were noted. Cardiac Monitoring: An order was placed for continuous cardiac monitoring. The monitor shows a rate of 70 bpm with sinus rhythm. Laboratory studies: As stated above and show below. Imaging studies: See below. Radiographic imaging was reviewed by myself Consultation(s): I discussed this case with Candy who is on-call for the [facility] group. Past Med/Surg History Medical History CAD (coronary artery disease) Hepatitis A No pertinent family history Non-ST elevation IN (NSTEMI) Surgical History No pertinent past surgical history Social History Smoking Status: Former smoker Hx Alcohol Use: Yes Alcohol type: wine Hx Substance Use: No Preferred Language: Mexican 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 Ability: Effective 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 Tools: IPad and Language Line Ergonomics Engineer Ergonomics Engineer Required: Yes Beliefs That Will Affect Care: None Current Living Situation: Spouse and Family Current Living Situation Comment: Patient lives at home with and daughter Feels Safe at Home: Yes Assistive Devices: None Allergies Allergies Allergy/AdvReac Type Severity Reaction Status Date / Time No Known Allergies Allergy Verified 06/11/22 14:49 Home Meds Previous Rx's Medication Instructions Recorded aspirin 81 mg tablet,delayed 81 mg PO QAM #90 tabs 06/27/22 release atorvastatin 80 mg tablet 80 mg PO DAILY #90 tabs 06/27/22 losartan 25 mg tablet 25 mg PO QAM #90 tabs 06/27/22 metoprolol tartrate 25 mg tablet 12.5 mg PO BID #90 tabs 06/27/22 ticagrelor 90 mg tablet (Brilinta) 90 mg PO BID #180 tabs 06/27/22 Results & Data (ED) Vital Signs Vital Signs - 24 hr 06/27/22 10:28 06/27/22 10:49 06/27/22 11:08 Temperature 36.7 C Temperature Source Temporal Artery Scan Pulse Rate 68 58 L Pulse Rate [Right Finger] 59 L Pulse Rhythm Respiratory Rate 16 17 Blood Pressure 182/104 H 154/89 H Blood Pressure [Right Arm] 174/109 H Blood Pressure Mean 130 110 Blood Pressure Mean [Right Arm] 130 Pulse Oximetry 98 99 98 Oxygen Delivery Method Room Air Room Air Sepsis Recent Fever Within 48 Hours No Sepsis New/Unexplained Change in Mental Status N/A Sepsis Action Taken by Nursing No Action Required 06/27/22 11:08 06/27/22 12:06 Temperature Temperature Source Pulse Rate 60 55 L Pulse Rate [Right Finger] Pulse Rhythm Regular Respiratory Rate 17 Blood Pressure Blood Pressure [Right Arm] Blood Pressure Mean Blood Pressure Mean [Right Arm] Pulse Oximetry 98 Oxygen Delivery Method Room Air Sepsis Recent Fever Within 48 Hours Sepsis New/Unexplained Change in Mental Status Sepsis Action Taken by Long-Term Medications Current Medication List: was personally reviewed by me Laboratory Data Attestation: I reviewed the patient's lab results. 06/27/22 10:59 06/27/22 10:59 Lab Results 06/27/22 06/27/22 06/27/22 Range/Units 10:59 10:59 10:59 WBC 4.58 L (4.8-10.8) K/ul RBC 4.96 (4.70-6.10) M/uL Hgb 14.9 (14.0-18.0) g/dl Hct 43.5 (42.0-52.0) % MCV 87.7 (80.0-100.0) fL MCH 30.0 (25.0-34.0) pg MCHC 34.3 (32.0-36.0) g/dL RDW Std Deviation 40.0 (36.4-46.3) fL RDW Coeff of Antonio 12.6 (11.5-14.5) % Plt Count 157 (130-400) K/uL MPV 9.8 (9.4-12.4) fL Immature Gran % (Auto) 0.2 % Neut % (Auto) 62.1 % Lymph % (Auto) 25.3 % [place] % (Auto) 10.0 % Eos % (Auto) 1.7 % Baso % (Auto) 0.7 % Neut # (Auto) 2.84 (1.40-6.50) K/uL Lymph # (Auto) 1.16 L (1.2-3.4) K/uL [place] # (Auto) 0.46 (0.11-0.59) K/uL Eos # (Auto) 0.08 (0-0.50) K/uL Baso # (Auto) 0.03 (0-0.2) K/uL Immature Gran # (Auto) 0.01 (0.01-0.20) K/uL PT 10.9 (9.0-12.0) Seconds INR 1.0 (0.9-1.1) APTT 28.7 (21.0-31.0) Seconds PTT Ratio 1.0 Sodium 135 L (136-145) mmol/L Potassium 4.3 (3.5-5.1) mmol/L Chloride 105 (98-107) mmol/L Carbon Dioxide 30 (21-32) mmol/L Anion Gap 0 L (3-11) BUN 22 (6-23) mg/dl Creatinine 1.19 (0.6-1.4) mg/dl Est Cr Clr Drug Dosing 60.9 ml/min Est GFR ( Amer) 74.9 ml/min Est GFR (Non-Af Amer) 64.6 ml/min BUN/Creatinine Ratio 18.5 (10-20) Glucose 90 (70-99(Fasting)) mg/dl Calcium 9.6 (8.6-10.3) mg/dl Total Bilirubin 0.8 (0.2-1.0) mg/dl AST 21 (13-39) U/L ALT 22 (7-52) U/L Alkaline Phosphatase 54 (34-104) U/L Total Creatine Kinase 112 (30-223) U/L Troponin I High Sens 25.7 H (0-20) pg/ml Total Protein 7.2 (6.0-8.3) gm/dl Albumin 4.1 (3.4-5.0) gm/dl Globulin 3.1 (2.5-4.0) gm/dl Albumin/Globulin Ratio 1.3 (0.9-2) Lipase 29 (11-82) U/L SARS-CoV-2, RNA, NAAT (NEGATIVE) 06/27/22 Range/Units 10:59 WBC (4.8-10.8) K/ul RBC (4.70-6.10) M/uL Hgb (14.0-18.0) g/dl Hct (42.0-52.0) % MCV (80.0-100.0) fL MCH (25.0-34.0) pg MCHC (32.0-36.0) g/dL RDW Std Deviation (36.4-46.3) fL RDW Coeff of Antonio (11.5-14.5) % Plt Count (130-400) K/uL MPV (9.4-12.4) fL Immature Gran % (Auto) % Neut % (Auto) % Lymph % (Auto) % [place] % (Auto) % Eos % (Auto) % Baso % (Auto) % Neut # (Auto) (1.40-6.50) K/uL Lymph # (Auto) (1.2-3.4) K/uL [place] # (Auto) (0.11-0.59) K/uL Eos # (Auto) (0-0.50) K/uL Baso # (Auto) (0-0.2) K/uL Immature Gran # (Auto) (0.01-0.20) K/uL PT (9.0-12.0) Seconds INR (0.9-1.1) APTT (21.0-31.0) Seconds PTT Ratio Sodium (136-145) mmol/L Potassium (3.5-5.1) mmol/L Chloride (98-107) mmol/L Carbon Dioxide (21-32) mmol/L Anion Gap (3-11) BUN (6-23) mg/dl Creatinine (0.6-1.4) mg/dl Est Cr Clr Drug Dosing ml/min Est GFR ( Amer) ml/min Est GFR (Non-Af Amer) ml/min BUN/Creatinine Ratio (10-20) Glucose (70-99(Fasting)) mg/dl Calcium (8.6-10.3) mg/dl Total Bilirubin (0.2-1.0) mg/dl AST (13-39) U/L ALT (7-52) U/L Alkaline Phosphatase (34-104) U/L Total Creatine Kinase (30-223) U/L Troponin I High Sens (0-20) pg/ml Total Protein (6.0-8.3) gm/dl Albumin (3.4-5.0) gm/dl Globulin (2.5-4.0) gm/dl Albumin/Globulin Ratio (0.9-2) Lipase (11-82) U/L SARS-CoV-2, RNA, NAAT NEGATIVE (NEGATIVE) Imaging Data Attestation: I personally reviewed and interpreted this imaging study as follows: My Impression: 1 view chest x-ray was obtained in the emergency department. My interpretation is no free air, final report below Radiologist's Impression: Chest X-Ray 06/27/22 10:43 XR chest 1V portable HISTORY: 62 years-old Male Chest pain, nonspecific acute chest pain COMPARISON: 05/28/2022 TECHNIQUE: AP view of the chest FINDINGS: Cardiomediastinal and hilar silhouettes are within normal limits. There is no pneumothorax, pleural effusion, airspace consolidation or pulmonary edema. Bones appear grossly intact. IMPRESSION: No acute process. ACT 112: Negative or not required by law. The above report was generated using voice recognition software. It may contain grammatical, syntax or spelling errors. Electronically signed by: Lenin Daigle M.D. 06/27/2022 11:14 AM Discharge Plan Visit Data Chief Complaint: Cardiac Assessment Stated Complaint: CHEST PAINS,HEART ATTACK 4WKS AGO,REF BY DOC ED Provider: Peng Avalos Discharge Problem: Chest pain, Abnormal EKG, Elevated troponin I level Patient Disposition: Being Evaluated by Hospitalist Forms Stand Alone Forms: [facility] Prescriptions Prescriptions: No Action aspirin 81 mg tablet,delayed release (DR/EC) 81 mg PO QAM Qty: 90 3RF atorvastatin 80 mg tablet 80 mg PO DAILY Qty: 90 3RF losartan 25 mg tablet 25 mg PO QAM Qty: 90 3RF metoprolol tartrate 25 mg tablet 12.5 mg PO BID Qty: 90 3RF Brilinta 90 mg tablet 90 mg PO BID Qty: 180 3RF Referrals Referrals: Lisa Higgins MD [Outside Practitioners] -
--- NOTE | 2022-06-27 11:15 | XRay Report ---
XR chest 1V portable HISTORY: 62 years-old Male Chest pain, nonspecific acute chest pain COMPARISON: 05/28/2022 TECHNIQUE: AP view of the chest FINDINGS: Cardiomediastinal and hilar silhouettes are within normal limits. There is no pneumothorax, pleural e ffusion, airspace consolidation or pulmonary edema. Bones appear grossly intact. IMPRESSION: No acute process. ACT 112: Negative or not required by law. The above report was generated using voice recognition software. It may contain grammatical, syntax o r spelling errors. Electronically signed by: Lenin Daigle M.D. 06/27/2022 11:14 AM
[2022-06-27 11:58] LABS: Basophils # (auto) 0.03 K/uL (0-0.2); Basophils % (auto) 0.7 %; Eosinophils # (auto) 0.08 K/uL (0-0.50); Eosinophils % (auto) 1.7 %; Hematocrit (blood only) 43.5 % (42.0-52.0); Hemoglobin 14.9 g/dl (14.0-18.0); Immature Granulocytes # (auto) 0.01 K/uL (0.01-0.20); Immature Granulocytes % (auto) 0.2 %; Lymphocytes # (auto) 1.16 K/uL (1.2-3.4); Lymphocytes % (auto) 25.3 %; Mean Corpuscular Hgb Conc 34.3 g/dL (32.0-36.0); Mean Corpuscular Volume 87.7 fL (80.0-100.0); Mean Platelet Volume 9.8 fL (9.4-12.4); Monocytes # (auto) 0.46 K/uL (0.11-0.59); Neutrophils # (auto) 2.84 K/uL (1.40-6.50); Neutrophils % (auto) 62.1 %; Platelet Count 157 K/uL (130-400); RDW Coefficient of Variation 12.6 % (11.5-14.5); Red Blood Count 4.96 M/uL (4.70-6.10); White Blood Count 4.58 K/ul (4.8-10.8)
[2022-06-27 12:10] LABS: Partial Thromboplastin Time 28.7 Seconds (21.0-31.0); Prothrombin Time 10.9 Seconds (9.0-12.0)
[2022-06-27 12:13] LABS: Albumin Level 4.1 gm/dl (3.4-5.0); Bilirubin,Total 0.8 mg/dl (0.2-1.0); Calcium 9.6 mg/dl (8.6-10.3); Potassium 4.3 mmol/L (3.5-5.1)
[2022-06-27 12:19] LABS: Albumin Globulin Ratio 1.3 (0.9-2); BUN Creatinine Ratio 18.5 (10-20); Creatinine Clr Calc Pharmacy 60.9 ml/min; Est GFR (African American) 74.9 ml/min; Est GFR (Non-African American) 64.6 ml/min; Globulin 3.1 gm/dl (2.5-4.0); Total Protein 7.2 gm/dl (6.0-8.3)
[2022-06-27 12:24] LABS: Troponin I High Sensitivity 25.7 pg/ml (0-20)
--- NOTE | 2022-06-27 13:03 | History & Physical Report ---
Date of Service June 27, 2022 Assessment & Plan (1) Chest pain: (2) CAD (coronary artery disease): Plan: Patient is 62-year-old male with PMH HTN, HLD, CAD s/p LEBRON to RCA and LAD on 05/29/2022, history elevated PSA, BPH presented to ER with complaint of chest pain x3-4 days. H/O NSTEMI 05/28/22 and 05/29/22 cardiac cath s/p LEBRON to RCA and LEBRON to LAD. Reported decreased CP past day. Currently rates 1/10 on pain scale Initial high-sensitivity troponin: 25 -->46. EKG sinus rhythm, Q waves and T wave inversion in inferior leads, incomplete right bundle branch block. No significant change from 05/29/2022 R/O ACS. DDX: pericarditis Monitor Vitals Repeat EKG in am Will trend troponin Continue aspirin, atorvastatin, metoprolol tartrate, tach or lower Nitro prn CP and repeat EKG for CP Cardiology consult (3) HTN (hypertension): Plan: BP elevated in ER. Suspect secondary to missing his losartan dose today Continue losartan, metoprolol tartrate (4) Elevated PSA: Plan: History elevated PSA, adenoma of prostate per outpatient records Continue tamsulosin, finasteride Following with outpatient [facility] urology. Continue outpatient follow-up DVT Prophylaxis Heparin SQ Full Code as per discussion with pt Follows with LINDA Ellis for routine care currently. Patient from [facility]. 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 Pt was seen and care coordinated with Dr Valentine. See addendum I spent a total of 83 minutes reviewing notes, outpatient records, labs, medication, coordinating, documenting and providing care for this patient excluding time spent in the performance of separately billed services. History of Present Illness Chief Complaint: CP Primary Care Provider: Michael Garduno MD Patient is 62-year-old male with PMH HTN, HLD, CAD s/p LEBRON to RCA and LAD on 05/29/2022, history elevated PSA, BPH presented to ER with complaint of chest pain x3-4 days. Patient is from [facility], is [place]-speaking. Assistant Site Manager service used. History obtained from patient as well as inpatient and outpatient chart review. Patient with hospitalization 05/28/2022-05/30/2022 for NSTEMI. Had cardiac cath that showed severe multivessel CAD, s/p PCI distal RCA with single LEBRON, PCI early mid LAD with single LEBRON on 05/29/22. Patient states the last 3 to 4 days has had left-sided chest pain that he describes as burning pain. He reports pain has been fairly constant. Feels like pain lessens with lying supine. However he did notice that pain transition to mid chest. States 3 to 4 days ago rated pain as 6 out of 7 out of 10 on the pain scale and pain has gradually decreased. Currently rates pain a 1 out of 10 on pain scale. He previously was exercising however stopped exercising the past several days secondary to the chest pain. He has continued walking. He denies any associated shortness of breath, palpitations, nausea, vomiting, diaphoresis. Patient states several weeks ago when he had his MA he had more severe chest pain with associated sh ortness of breath and associated headache. He feels this current chest pain is much less severe. Patient states that he has 2 pills remaining of his medication and went to pharmacy to get his medication refilled however was told there were no refills on his current prescription so he called his doctor for refills. He had mentioned that he had been having chest pain and was encouraged to come to ER for evaluation. Patient states that is why he presented to ER today. Denies fever/chills, diaphoresis, N/V/D/C, dizziness, syncope, vision changes, neck pain, orthopnea, cough, sore throat, choking, otalgia, rhinorrhea, abdominal pain, paresthesias, weakness, extremity weakness, extremity edema, rashes, urinary symptoms. Allergies Allergy/AdvReac Type Severity Reaction Status Date / Time No Known Allergies Allergy Verified 06/27/22 13:30 Home Medications Medication Instructions Recorded Confirmed Type aspirin 81 mg tablet,delayed 81 mg PO QAM #90 tabs 06/27/22 06/27/22 Rx release atorvastatin 80 mg tablet 80 mg PO DAILY #90 tabs 06/27/22 06/27/22 Rx finasteride 5 mg tablet 5 mg PO DAILY 06/27/22 06/27/22 History losartan 25 mg tablet 25 mg PO QAM #90 tabs 06/27/22 06/27/22 Rx metoprolol tartrate 25 mg tablet 12.5 mg PO BID #90 tabs 06/27/22 06/27/22 Rx tamsulosin 0.4 mg capsule 0.4 mg PO DAILY 06/27/22 06/27/22 History ticagrelor 90 mg tablet (Brilinta) 90 mg PO BID #180 tabs 06/27/22 06/27/22 Rx Past Med/Surg History Medical History (Updated 06/27/22 @ 21:29 by Anne Roca PA-C) CAD (coronary artery disease) Elevated PSA Hepatitis A HTN (hypertension) No pertinent family history Non-ST elevation MA (NSTEMI) Surgical History (Updated 06/27/22 @ 21:29 by Anne Roca PA-C) History of cardiac cath Family History (Updated 06/27/22 @ 21:26 by Anne Roca PA-C) Other Heart disease Social History Smoking Status: Former smoker Second Hand Exposure: No; Do You Dip or Chew Tobacco: No; Tobacco Cessation Education Requested by Patient: No Hx Alcohol Use: Yes Alcohol type: wine Hx Substance Use: No Preferred Language: [place] 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 Ability: Effective 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 Ability Comment: Fluent in Albanian/[place] 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 Tools: IPad Assistant Site Manager Required: Yes Beliefs That Will Affect Care: None Current Living Situation: Spouse and Family Current Living Situation Comment: Patient lives at home with and daughter Other Information That Helps Us Care for You: No Feels Safe at Home: Yes Safety Concerns: Feels Safe At This Time Assistive Devices: None Review of Systems Review of Systems: All systems reviewed & are unremarkable except as noted in HPI & below Physical Exam Physical Exam: General: no distress, WDWN Head: normocephalic, atraumatic Eyes: conjunctiva non-injected, anicteric ENT: normal inspection external ears, nose, mucous membranes moist Neck: supple, trachea midline Lungs: clear, no respiratory distress, no wheezing/rhonchi/rales CV: RRR, no murmur, no pretibial edema, no chest wall tenderness to palpation Abd: normal BS, soft, non-tender Ext: no cyanosis, no calf tenderness Neuro: A&O x 3, no focal deficits noted, normal affect Skin: warm, dry Results & Data Results & Data Vital Signs (Past 12 Hours) Vital Signs Temp Pulse Pulse Resp BP BP Pulse Ox 06/27/22 12:06 55 L 06/27/22 11:08 60 17 98 06/27/22 11:08 58 L 17 154/89 H 98 06/27/22 10:49 59 L 174/109 H 99 06/27/22 10:28 36.7 C 68 16 182/104 H 98 O2 Del Method 06/27/22 12:06 06/27/22 11:08 Room Air 06/27/22 11:08 Room Air 06/27/22 10:49 Room Air 06/27/22 10:28 Laboratory Results Short CBC 06/27/22 Range/Units 10:59 WBC 4.58 L (4.8-10.8) K/ul Hgb 14.9 (14.0-18.0) g/dl Hct 43.5 (42.0-52.0) % Plt Count 157 (130-400) K/uL BMP 06/27/22 10:59 Sodium 135 L Potassium 4.3 Chloride 105 Carbon Dioxide 30 BUN 22 Creatinine 1.19 Glucose 90 Calcium 9.6 Cardiac Enzymes 06/27/22 Range/Units 10:59 Total Creatine Kinase 112 (30-223) U/L Liver Function 06/27/22 Range/Units 10:59 Total Bilirubin 0.8 (0.2-1.0) mg/dl AST 21 (13-39) U/L ALT 22 (7-52) U/L Alkaline Phosphatase 54 (34-104) U/L Albumin 4.1 (3.4-5.0) gm/dl Diagnostic Findings Chest X-Ray 06/27/22 10:43 XR chest 1V portable HISTORY: 62 years-old Male Chest pain, nonspecific acute chest pain COMPARISON: 05/28/2022 TECHNIQUE: AP view of the chest FINDINGS: Cardiomediastinal and hilar silhouettes are within normal limits. There is no pneumothorax, pleural effusion, airspace consolidation or pulmonary edema. Bones appear grossly intact. IMPRESSION: No acute process. ACT 112: Negative or not required by law. The above report was generated using voice recognition software. It may contain grammatical, syntax or spelling errors. Electronically signed by: Lenin Daigle M.D. 06/27/2022 11:14 AM ECG Rate (beats per minute): 61 Rhythm: sinus rhythm Findings: + Q waves (Inferior), + RBBB (Incomplete RBBB) and + T-wave inversion (Inferior) Change: no significant change (Compared to EKG 05/29/2022) Supervising Physician Co-Signing Physician Notes Patient with history of CAD with recent NSTEMI with stent 05/29/2022 to distal RCA and mid LAD. History also of HTN, HLD. 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 Recently saw Dr Garduno in the office after discharge from the [facility] Here with chest pain for past several days. Troponin is mildly elevated. EKG reviewed shows persistent TWI in inferior leads and RBBB which was present on prior EKGs from 05/29/2022. Would [address] into observation. Trend cardiac enzymes. Consult Cardiology, hold off on repeat TTE pending evaluation by Cardiology. BP noted to be elevated at 154/89, he also had elevated BP on prior hospitaliz ation and with initiation of losartan BP had normalized prior to discharge. Will continue home medications and monitor for now, may need uptitration of losartan. (1) Chest pain Chest pain type: unspecified Qualified Code(s): R07.9 - Chest pain, unspecified
[2022-06-27] MEDS ORDERED: ASPIRIN CHEW 324 MG PO STA (13:04)
--- NOTE | 2022-06-27 13:26 | 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 Note ---
Date of Service: June 27, 2022 Patient with history of CAD with recent NSTEMI with stent 05/29/2022 to distal RCA and mid LAD. History also of HTN, HLD. 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 Recently saw Dr Garduno in the office after discharge from the hospital. Here with chest pain for past several days. Troponin is mildly elevated. EKG reviewed shows persistent TWI in inferior leads and RBBB which was present on prior EKGs from 05/29/2022. Would [address] into observation. Trend cardiac enzymes. Consult Cardiology, hold off on repeat TTE pending evaluation by Cardiology. BP noted to be elevated at 154/89, he also had elevated BP on prior hospitalization and with initiation of losartan BP had normalized prior to discharge. Will continue home medications and monitor for now, may need uptitration of losartan.
[2022-06-27] MEDS ORDERED: ACETAMINOPHEN 325 MG TAB PO PRN (14:28)
[2022-06-27] MEDS ORDERED: ALUMINUM/MAGNESIUM SUSP 30 ML UDC PO PRN (14:28)
[2022-06-27] MEDS ORDERED: NITROGLYCERIN SL 0.4 MG/TAB TAB SL PRN (14:28)
[2022-06-27] MEDS ORDERED: POLYETHYLENE (MIRALAX) 17 GM PACK PO PRN (14:28)
[2022-06-27] MEDS ORDERED: ONDANSETRON INJ 2 MG/ML 2 ML VIAL IV PRN (14:28)
[2022-06-27] MEDS ORDERED: ACETAMINOPHEN 500 MG TAB PO ONE (14:31)
[2022-06-27] MEDS: LOSARTAN POTASSIUM 25 MG TAB PO SCH (16:02)
[2022-06-27] MEDS: METOPROLOL TARTRATE 25 MG TAB PO SCH (20:19)
[2022-06-27] MEDS: HEPARIN SOD 5,000 UNIT/0.5 ML VIAL SQ SCH (20:20)
[2022-06-27] MEDS: TICAGRELOR 90 MG TAB PO SCH (20:20)
[2022-06-28 01:03] LABS: Hematocrit (blood only) 40.3 % (42.0-52.0); Hemoglobin 14.1 g/dl (14.0-18.0); Mean Corpuscular Hemoglobin 30.5 pg (25.0-34.0); Mean Corpuscular Volume 87.2 fL (80.0-100.0); Mean Platelet Volume 9.4 fL (9.4-12.4); Platelet Count 150 K/uL (130-400); RDW Coefficient of Variation 12.5 % (11.5-14.5); RDW Standard Deviation 39.6 fL (36.4-46.3); Red Blood Count 4.62 M/uL (4.70-6.10)
[2022-06-28 01:20] LABS: BUN Creatinine Ratio 21.1 (10-20); Calcium 9.2 mg/dl (8.6-10.3); Creatinine Clr Calc Pharmacy 56.6 ml/min; Est GFR (African American) 68.6 ml/min; Est GFR (Non-African American) 59.2 ml/min
[2022-06-28] MEDS ORDERED: TAMSULOSIN HCL 0.4 MG CAP PO SCH (09:00)
[2022-06-28] MEDS ORDERED: FINASTERIDE 5 MG TAB PO SCH (09:00)
[2022-06-28] MEDS ORDERED: ATORVASTATIN 40 MG TAB PO SCH (09:00)
[2022-06-28] MEDS ORDERED: ASPIRIN 81 MG ECTAB PO SCH (09:00)
[2022-06-28] MEDS: METOPROLOL TARTRATE 25 MG TAB PO SCH (10:28)
[2022-06-28] MEDS: LOSARTAN POTASSIUM 25 MG TAB PO SCH (10:29)
[2022-06-28] MEDS: HEPARIN SOD 5,000 UNIT/0.5 ML VIAL SQ SCH (10:30)
[2022-06-28] MEDS: TICAGRELOR 90 MG TAB PO SCH (10:30)
--- NOTE | 2022-06-28 13:24 | Cardiology Consultation ---
Date of Consultation June 28, 2022 Assessment & Plan (1) Chest pain: 2. CAD -- ACS ost PCI with LEBRON to RCA Nonculprit LAD disease post staged PCI with LEBRON 3. Dyslipidemia - LDL 162 4. Anemia - Hb 12.1 during admit, repeat labs 5. BPH Patient presenting with days of recurrent chest symptoms somewhat reminiscent of what he had with his prior MT. ECG shows what appear to be evolving changes of his prior inferior MT. Also has some peaked T waves anteriorly. Troponin elevation minimal. With initial testing low suspicion for stent thrombosis or stent failure. Recommended additional risk stratification with exercise stress echo. Patient did well, exercised more than [address] changes. No exercise- induced wall motion abnormalities. Question if symptoms related to previously jailed diagonal vessels with residual disease and/or may be related to some noncardiac etiology. Stress test reassuring and feel unlikely chest pain unlikely to be secondary to any new high risk CAD. Recommend further increasing antianginal regimen. Will replace losartan with amlodipine 5 mg daily. Continue current metoprolol. Continue DAPT with aspirin, ticagrelor. Continue current statin. From a cardiac standpoint okay for discharge today. Follow-up with me in 2 to 3 weeks. History of Present Illness Attending Physician: Levar Glez MD History of Present Illness Mr. Lizama is a very pleasant 61 year old man with CAD, 1 month out from NSTEMI multivessel PCI admitted currently for recurrent chest pain. 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 Past medical history significant for remote hepatitis A, BPH and chronic shoulder/back pain. Life long non-smoker. Mother from heart condition suddenly at 66. Patient presented to [facility] 05/28/2022 with stuttering tearing central chest pain radiating to his back over the preceding 5 days, worse with exertion. ECG showed sinus rhythm with minimal ST elevation and q waves inferiorly. Initial Hs[place] 6000[place] [address]. Echo with preserved LV function with mild inferior/inferolateral hypokinesis. On cath had 98% acute distal RCA with faint cmib-zk-wumva collaterals and 70% earlymid LAD nonculprit disease positive by FFR. Had single LEBRON placed to RCA and additional LEBRON to earlymid LAD. Post procedure did well. Had no recurrent chest pain. Discharged on DAPT with aspirin, ticagrelor. Seen 2+ weeks ago as an outpatient was doing well. States that approximately 2 to 3 days ago started noticing near constant burning chest discomfort substernally as well as his sharp left-sided chest chest pain below his nipple. No real correlation with exertion. Symptoms similar to what he had with MT but less severe. Directed to ED by my office. Hemodynamically stable. ECG showed sinus rhythm with incomplete right bundle branch block, inferior Q waves with deep T wave inversions and peaked anterior T waves. HS TropI borderline 25, peaked at 46. Telemetry overnight unremarkable. This morning comfortable, still with some chest discomfort may be 1 out of 10. Recent lipids: 05/2022: TC 223, HDL 47, TG 70, LDL 162, A1c 5.7% Recent cardiac studies: Cardiac cath/PCI 05/2022: 98% acute distal RCA with faint xipw-wy-eaxaq collaterals, 70% earlymid LAD (0.79 FFR) PCI of distal RCA 3.5 x 22 mm [place] MT; Postdilated with 4.0 NC PCI of earlymid LAD 0.0 x 12 mm [place]; postdilated with 4.0 NC 05/29/2021: EF 55%, mild inferior/inferolateral hypokinesis. Mild MR. Dilated IVC Allergies Allergy/AdvReac Type Severity Reaction Status Date / Time No Known Allergies Allergy Verified 06/27/22 13:30 Home Medications Medication Instructions Recorded Confirmed Type aspirin 81 mg tablet,delayed 81 mg PO QAM #90 tabs 06/27/22 06/27/22 Rx release atorvastatin 80 mg tablet 80 mg PO DAILY #90 tabs 06/27/22 06/27/22 Rx finasteride 5 mg tablet 5 mg PO DAILY 06/27/22 06/27/22 History losartan 25 mg tablet 25 mg PO QAM #90 tabs 06/27/22 06/27/22 Rx metoprolol tartrate 25 mg tablet 12.5 mg PO BID #90 tabs 06/27/22 06/27/22 Rx tamsulosin 0.4 mg capsule 0.4 mg PO DAILY 06/27/22 06/27/22 History ticagrelor 90 mg tablet (Brilinta) 90 mg PO BID #180 tabs 06/27/22 06/27/22 Rx Patient History Medical History (Updated 06/27/22 @ 21:29 by Anne Roca PA-C) CAD (coronary artery disease) Elevated PSA Hepatitis A HTN (hypertension) No pertinent family history Non-ST elevation MT (NSTEMI) Surgical History (Updated 06/27/22 @ 21:29 by Anne Roca PA-C) History of cardiac cath Family History (Updated 06/27/22 @ 21:26 by Anne Roca PA-C) Other Heart disease Social History Smoking Status: Former smoker Second Hand Exposure: No; Do You Dip or Chew Tobacco: No; Tobacco Cessation Education Requested by Patient: No Hx Alcohol Use: Yes Alcohol type: wine Hx Substance Use: No Preferred Language: Macanese 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 Ability: Effective 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 Ability Comment: Fluent in [place]/Macanese 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 Tools: IPad Spouting Installer Required: Yes Beliefs That Will Affect Care: None Current Living Situation: Spouse and Family Current Living Situation Comment: Patient lives at home with and daughter Other Information That Helps Us Care for You: No Feels Safe at Home: Yes Safety Concerns: Feels Safe At This Time Assistive Devices: None Review of Systems Review of Systems: All systems reviewed & are unremarkable except as noted in HPI & below Physical Exam Physical Exam: General: Comfortable HEENT: Sclera anicteric Lungs: Clear to auscultation bilaterally, no crackles or wheezes Cardiac: Regular rate and rhythm, no murmurs. No pain to palpation Vascular: 2+ radial pulse Abdomen: Soft, nontender Extremities: Well perfused, no peripheral edema Neuro: Nonfocal Psych: Alert orient x3, normal affect and mood Results & Data Vital Signs (Past 12 Hours) Vital Signs Temp Pulse Resp BP Pulse Ox O2 Del Method 06/28/22 11:12 98.1 F 54 L 19 129/78 99 Room Air 06/28/22 07:45 97.7 F 57 L 19 136/82 99 Room Air 06/28/22 05:10 97.7 F 56 L 19 117/65 97 Room Air PG Care Time/CCT Total # of Minutes Spent Total Time Spent with Patient: Total time spent is greater than 50% in coordination of care (as documented) at patient's floor/unit and/or counseling patient: Coding Level of Care Code 49051 IN/OBS CONSULT LVL 4,60M Diagnoses Chest pain R07.9 Chest pain type: unspecified (1) Chest pain Chest pain type: unspecified Qualified Code(s): R07.9 - Chest pain, unspecified
--- NOTE | 2022-06-28 15:48 | Discharge Summary ---
Date of Service June 28, 2022 Admission HPI Per Admitting Provider Patient is 62-year-old male with PMH HTN, HLD, CAD s/p LEBRON to RCA and LAD on 05/29/2022, history elevated PSA, BPH presented to ER with complaint of chest pain x3-4 days. Patient is from [facility], is Greek-speaking. Eval[employer]ator Transfer [employer] service used. History obtained from patient as well as inpatient and outpatient chart review. Patient with hospitalization 05/28/2022-05/30/2022 for NSTEMI. Had cardiac cath that showed severe multivessel CAD, s/p PCI distal RCA with single LEBRON, PCI early mid LAD with single LEBRON on 05/29/22. Patient states the last 3 to 4 days has had left-sided chest pain that he describes as burning pain. He reports pain has been fairly constant. Feels like pain lessens with lying supine. However he did notice that pain transition to mid chest. States 3 to 4 days ago rated pain as 6 out of 7 out of 10 on the pain scale and pain has gradually decreased. Currently rates pain a 1 out of 10 on pain scale. He previously was exercising however stopped exercising the past several days secondary to the chest pain. He has continued walking. He denies any associated shortness of breath, palpitations, nausea, vomiting, diaphoresis. Patient states several weeks ago when he had his MT he had more severe chest pain with associated shortness of breath and associated headache. He feels this current chest pain is much less severe. Patient states that he has 2 pills remaining of his medication and went to pharmacy to get his medication refilled however was told there were no refills on his current prescription so he called his doctor for refills. He had mentioned that he had been having chest pain and was encouraged to come to ER for evaluation. Patient states that is why he presented to ER today. Denies fever/chills, diaphoresis, N/V/D/C, dizziness, syncope, vision changes, neck pain, orthopnea, cough, sore throat, choking, otalgia, rhinorrhea, abdominal pain, paresthesias, weakness, extremity weakness, extremity edema, rashes, urinary symptoms. Admission Exam Per Admitting Provider General: no distress, WDWN Head: normocephalic, atraumatic Eyes: conjunctiva non-injected, anicteric ENT: normal inspection external ears, nose, mucous membranes moist Neck: supple, trachea midline Lungs: clear, no respiratory distress, no wheezing/rhonchi/rales CV: RRR, no murmur, no pretibial edema, no chest wall tenderness to palpation Abd: normal BS, soft, non-tender Ext: no cyanosis, no calf tenderness Neuro: A&O x 3, no focal deficits noted, normal affect Skin: warm, dry Principal Diagnosis Chest pain likely due to angina Discharge Exam Constitutional: WD/WN, vitals as above, NAD, sitting up in bed, pleasant, conversing easily Respiratory: normal respiratory effort, lungs clear to auscultation, no wheeze, rales, rhonchi. Normal insp/exp effort, no accessory muscle use Cardiovascular: RRR, no murmur, no edema Vessels: no JVD or carotid bruit Chest: normal inspection of chest Abdomen: normal bowel sounds, soft, nontender, no hepatosplenomegaly Musculoskeletal: no cyanosis or clubbing, extremities motor strength 5/5 Skin: no rashes, warm and dry normal turgor Neurologic: PERRL, EOMI, accommodation nl, no face palsy, no dysarthria CN's II- XI intact bilaterally and moves all extremities Psychiatric: A+Ox3, euthymic affect Lymphatic: no cervical or axillary lymphadenopathy : deferred Discharge Data Allergies Allergy/AdvReac Type Severity Reaction Status Date / Time No Known Allergies Allergy Verified 06/27/22 13:30 Consultations 06/27/22 12:57 ED Decision to Admit Stat 06/27/22 14:08 Consult Cardiology Routine Hospital Course (1) Chest pain: (2) CAD (coronary artery disease): (3) HTN (hypertension): (4) Elevated PSA: Plan Patient is 62-year-old male with PMH HTN, HLD, CAD s/p LEBRON to RCA and LAD on 05/29/2022, history elevated PSA, BPH presented to ER with complaint of chest pain x3-4 days. EKG showed sinus rhythm, Q waves and T wave inversion in inferior leads, incomplete right bundle branch block; No significant change from 05/29/2022. High-sensitivity troponin was found to be elevated to 25 which up trended to 46 and eventually down trended. Cardiology was consulted; patient underwent stress test; no dynamic ST changes were noted. Also, no exercise- induced wall motion were seen. Cardiology recommended stopping losartan and starting the patient on amlodipine. Patient was discharged home with instruction to follow-up with his primary care doctor and cardiology. He was also given prescription for nitro glycerin as needed for chest pain. Total Time Total Time Spent Total Time Spent (In Minutes): 35 Discharge Plan Discharge Items Patient Disposition: Home - Self-Care Reason For Visit: CP Discharge Diagnosis: Angina Activity: Resume your previous activity Non-emergency contact: Primary Care Provider Call non-emergency contact if: you have any medication questions and your symptoms worsen Follow-up/Referrals: Adilson Garduno MD [Primary Care Provider] - 07/03/22 11:00 am Priti Bingham CRNP [Outside Practitioners] - (Date & Time 07/04/2022 11:00 AM Provider Lisa Higgins MD Department Family [facility] ) Addtl Attending Provider Instructions: You were admitted here with chest pain. You underwent stress test which was negative. The medications you will be on are as follows: 1) Aspirin 81 mg once daily in morning 2) Brilinta 90 mg twice daily ( morning and night) 3) Metoprolol 12.5mg twice daily ( morning and afternoon around 5pm). 4) Amlodipine 5mg once daily in morning. 5) Lipitor 80mg a night. 6) Nitroglycerin 0.4 SL ( under the tongue) as needed for chest pain. Follow up with Dr. Garduno (cardiology) Pending Studies at Discharge: No Stand-Alone Forms: My [facility], Smoking Cessation Medications and DC Order Prescriptions: New amlodipine [Norvasc] 5 mg Tablet 5 mg PO QAM Qty: 30 0RF nitroglycerin [Nitrostat] 0.4 mg Tablet, Sublingual 0.4 mg sublingual UD PRN (Reason: chest pain) Qty: 30 0RF Continued aspirin 81 mg tablet,delayed release (DR/EC) 81 mg PO QAM Qty: 90 3RF atorvastatin 80 mg tablet 80 mg PO DAILY Qty: 90 3RF metoprolol tartrate 25 mg tablet 12.5 mg PO BID Qty: 90 3RF Brilinta 90 mg tablet 90 mg PO BID Qty: 180 3RF tamsulosin 0.4 mg capsule 0.4 mg PO DAILY finasteride 5 mg tablet 5 mg PO DAILY Discontinued losartan 25 mg tablet 25 mg PO QAM Qty: 90 3RF Discharge Orders: Discharge Order (Routine); Ordered 06/28/22 Ordered By: Levar Osorio/Other Patient Handouts: Low-Salt Choices, Taking Amlodipine, Nitroglycerin Fast Acting Dc, Medicines for Heart Disease Admission Data Admit Date/Time: 06/27/22 13:14 Attending Provider: Levar Glez Admit Provider: Heidy Valentine Primary Care Provider: Adilson Garduno Other Providers: Heidy Valentine ; Louis Roger Other Interventions: Discharge Summary Assessment (RN) Last Done: 06/28/22 14:42
--- NOTE | 2022-06-29 00:01 | XCELERA ---
[id number]
--- NOTE | 2022-06-29 05:39 | Electrocardiogram Report ---
Test Reason : Blood Pressure : / mmHG Vent. Rate : 061 BPM Atrial Rate : 061 BPM P-R Int : 166 ms QRS Dur : 094 ms QT Int : 432 ms P-R-T Axes : 064 -12 -58 degrees QTc Int : 434 ms Normal sinus rhythm Incomplete right bundle branch block Inferior infarct (cited on or before 28-MAY-2022) T wave abnormality, consider inferior ischemia Abnormal ECG When compared with ECG of 29-MAY-2022 14:19, Incomplete right bundle branch block is now Present Confirmed by Louis Roger ([id number]) on 06/29/2022 5:38:48 AM Referred By: Confirmed By:Louis Roger
[2022-06-29] MEDS ORDERED: amLODIPine BESYLATE 5 MG TAB PO SCH (09:00)
--- NOTE | 2022-06-29 21:26 | Electrocardiogram Report ---
Test Reason : Blood Pressure : / mmHG Vent. Rate : 049 BPM Atrial Rate : 049 BPM P-R Int : 184 ms QRS Dur : 094 ms QT Int : 512 ms P-R-T Axes : 065 000 -67 degrees QTc Int : 463 ms Sinus bradycardia Inferior infarct (cited on or before 28-MAY-2022) Abnormal ECG When compared with ECG of 27-JUN-2022 10:47, Serial changes of Inferior infarct Present Confirmed by Louis Roger ([id number]) on 06/29/2022 9:26:35 PM Referred By: REFERRED SELF Confirmed By:Louis Roger
== END 2022-06-28 15:42 | disposition home or self-care (01) ==
LOC: ED 10:28 → 4W 10:28 → SUATTDRO 13:14 → 4W 13:42